=== PATIENT | female | born 1970 | race Caucasian/White ===

== ENCOUNTER 2017-01-14 14:23 | Emergency (ER) | payer MEDICAID ==
[~2017-01-14] VITALS: Ht 157.5 cm; Wt 88.5 kg
[2017-01-14 15:01] VITALS: BP 197/101
--- NOTE | 2017-01-14 15:33 | NUR ---
Patient to bed 08.
--- NOTE | 2017-01-14 15:45 | NUR ---
PT STATES LEFT KNEE PAIN X 1 MONTH---WORSE TODAY WHEN AWOKE, DENIES INJURY . DENIES N/V/D; SKIN IS PINK/WARM/DRY; AAOX4 WITH EVEN AND STEADY GAIT; LUNGS CLEAR BL; HR EVEN AND REGULAR; PT DENIES ANY FEVER, CP, SOB, OR COUGH AT THIS TIME; PATIENT STATES PAIN OF 10/10 AT THIS TIME; VSS; PATIENT POSITIONED FOR COMFORT; HOB ELEVATED; BEDRAILS UP X2; BED DOWN. ER MD MADE AWARE OF PT STATUS.
--- NOTE | 2017-01-14 15:51 | NUR ---
Dr. Cox evaluating patient at bedside.
[2017-01-14] MEDS ORDERED: KETOROLAC 30 MG/ML VIAL IM ONE (15:55)
[2017-01-14 16:35] VITALS: BP 175/99
== END 2017-01-14 16:35 | disposition home or self-care (01) ==
LOC: MED 14:23
DX: M17.12 Unilateral primary osteoarthritis, left knee (principal)
CPT/HCPCS: 96372; 99283; J1885

== ENCOUNTER 2020-08-20 11:05 | Inpatient (IN) | payer MEDICAID, SELFPAY ==
[~2020-08-20] VITALS: Ht 152.4 cm; Wt 95.7 kg
[2020-08-20 11:13] VITALS: BP 135/54
[2020-08-20] MEDS ORDERED: ROCURONIUM 50 MG/5 ML VIAL IV ONE (12:00)
[2020-08-20] MEDS ORDERED: ETOMIDATE 20 MG/10 ML VIAL IVP ONE (12:00)
[2020-08-20] MEDS ORDERED: AZITHROMYCIN 500 MG INJ VIAL IV ONE (12:32)
[2020-08-20] MEDS ORDERED: DEXAMETHASONE 10 MG/ML VIAL ONE (12:32)
[2020-08-20] MEDS ORDERED: cefTRIAXone 1,000 MG VIAL ONE (12:32)
[2020-08-20 15:46] VITALS: BP 133/79
[2020-08-20] MEDS ORDERED: DOCUSATE SODIUM 100 MG GELCAP PO PRN (17:10)
[2020-08-20] MEDS ORDERED: ZOLPIDEM 5 MG TAB PO PRN (17:10)
[2020-08-20] MEDS ORDERED: ONDANSETRON 4 MG/2 ML VIAL IM/IVP PRN (17:10)
[2020-08-20] MEDS ORDERED: POTASSIUM CHLORIDE 10 MEQ TABER PO PRN (17:10)
[2020-08-20] MEDS ORDERED: guaiFENesin DM 200/20 MG-10 ML 10 ML UDC PO PRN (17:10)
[2020-08-20] MEDS ORDERED: HYDROcodone/APAP 7.5/325 MG 1 TAB PO PRN (17:10)
[2020-08-20] MEDS ORDERED: ALBUTEROL HFA MDI 90 MCG/ACTUATION 8 GM INH PRN (17:15)
--- NOTE | 2020-08-20 18:07 | NUR ---
50 years old female with sob cough x1 week, hypoxic 88% room air, placed on BIPAP 10/ with 60% FIO2 will continue to monitor awaiting for admit tele bed.
[2020-08-20 19:07] LABS: HEMATOCRIT 39.6 % (36-48); HEMOGLOBIN 13.1 g/dL (12.0-16.0); MEAN CORPUSCULAR VOLUME 91.1 fL (80-94); RED BLOOD CELL COUNT(AUTO) 4.35 MIL/uL (4.20-5.40); WHITE BLOOD COUNT (AUTO) 8.8 K/uL (4.8-10.8)
[2020-08-20 19:08] LABS: LYMPHOCYTES % (AUTO) 15.6 % (20.5-51.1); MEAN CORPUSCULAR HEMOGLOBIN 30 pg (27-31); MEAN CORPUSCULAR HGB CONC 33 g/dL (33-37); MONOCYTES % (AUTO) 3.6 % (1.7-9.3); NEUTROPHILS % (AUTO) 80.5 % (42.2-75.2); PLATELET COUNT (AUTO) 183 K/uL (140-450); RED CELL DISTRIBUTION WIDTH 14.3 % (11.6-13.7)
[2020-08-20 19:09] LABS: BASOPHILS % (AUTO) 0.2 % (0.0-2.0); EOSINOPHILS % (AUTO) 0.2 % (0.0-4.0); LYMPHOCYTES # (AUTO) 1.4 K/uL (2.5-16.5); MONOCYTES # (AUTO) 0.3 K/uL (0.8-1.0); NEUTROPHILS # (AUTO) 7.1 K/uL (1.8-7.7)
--- NOTE | 2020-08-20 19:30 | NUR ---
RECEIVED REPORT FROM AVIS MCBRIDE FOR CONTINUITY OF CARE.
[2020-08-20 19:52] LABS: PROTHROMBIN TIME 9.3 secs (10.8-13.4)
[2020-08-20 19:55] VITALS: BP 122/64
--- NOTE | 2020-08-20 20:00 | NUR ---
PT LAYING IN BED ON BIPAP O2 SAT BETWEEN 87%-92% LUNG SOUNDS WHEEZES BILAT A&P THROUGHOUT. INTERMITENTLY. DENIES HAVING ANY PAIN OR DISCOMFORT AT THIS TIME. SHE IS AA&O4, HEBREW SPEAKING. ON CONTINUES BEDSIDE MONITORING (CARDIAC MONITORING, PULSE OXIMETRY AND BP MONITORING). BED WAS LOCKED AND PLACED IN LOWEST POSITION.
[2020-08-20 20:02] LABS: CHOL/HDL RATIO 2.4 (1-4.5); FREE T4 (FREE THYROXINE) 1.02 ng/dL (0.76-1.46); MAGNESIUM 0.9 mg/dL (1.8-2.4); PHOSPHORUS 1.9 mg/dL (2.5-4.9); THYROID STIMULATING HORMONE 1.13 uIU/mL (0.34-3.74)
--- NOTE | 2020-08-20 20:31 | NUR ---
DR. YIP AT BEDSIDE EVALUATING PT.
[2020-08-20 21:01] LABS: ANION GAP 15.6 (8-16); CARBON DIOXIDE 23.1 mmol/L (21-32); POTASSIUM 3.7 mmol/L (3.5-5.1); TOTAL BILIRUBIN 0.3 mg/dL (0.0-1.0)
[2020-08-20 21:02] LABS: ALBUMIN 2.7 g/dL (3.4-5.0)
[2020-08-20] MEDS: NACL 0.9% 1,000 ML IV SCH (21:43)
--- NOTE | 2020-08-20 22:35 | NUR ---
PT LAYING IN BED NO C/O PAIN OR DISCOMFORT AT THIS TIME. REMAINS ON BIPAP O2 SAT 89%. SETTINGS REMAIN AT THIS TIME. NO C/O N, V, D. REMAINS ON BEDSIDE MONITORING. BED LOCKED AND IN LOWEST POSITION.
[2020-08-21] VITALS (8 sets, daily range): BP systolic 122–158; BP diastolic 64–84
--- NOTE | 2020-08-21 00:18 | NUR ---
PT LAYING IN BED NO C/O PAIN OR DISCOMFORT AT THIS TIME. REMAINS ON BIPAP O2 SAT 89%. SETTINGS REMAIN AT THIS TIME. NO C/O N, V, D. REMAINS ON BEDSIDE MONITORING. BED LOCKED AND IN LOWEST POSITION. SHE WAS REPOSITION AND ADJUSTED HOB TO A COMFORTABLE POSITION.
--- NOTE | 2020-08-21 01:19 | NUR ---
OFFERED PT TO USE THE BATHROOM VIA BEDSIDE BEDPAN STATES, "I AM OKAY I DO NOT NEED TO GO". WILL CONTINUE TO MONITOR AND EDUCATED PT IF NEED TO GO TO CALL NURSE. VERBALIZED UNDERSTANDING.
--- NOTE | 2020-08-21 01:45 | NUR ---
AIXA SWAB COLLECTED AND SENT TO LAB AT THIS TIME.
--- NOTE | 2020-08-21 02:35 | NUR ---
PT LAYING IN BED NO C/O PAIN OR DISCOMFORT AT THIS TIME. REMAINS ON BIPAP O2 SAT 94%. SETTINGS REMAIN AT THIS TIME. NO C/O N, V, D. REMAINS ON BEDSIDE MONITORING. BED LOCKED AND IN LOWEST POSITION. SHE WAS REPOSITION AND ADJUSTED HOB TO A COMFORTABLE POSITION.
--- NOTE | 2020-08-21 03:00 | NUR ---
RECEIVED PATIENT FROM ER FOR CONTINUITY OF CARE. AAOX4. RESPIRATIONS EVEN, SLIGHTLY LABORED UPON EXERTION. CONTINUES ON BIPAP. SKIN ASSESSMENT COMPLETED. SKIN INTACT. IV SITE TO RIGHT AC 20G PATENT/INTACT, INFUSING FLUIDS WELL. NO C/O PAIN. NO S/S ACUTE DISTRESS. ABDOMEN SOFT, NONTENDER, NONDISTENDED. PATIENT IS CONTINENT OF B/B. PATIENT ORIENTED TO STAFF/CALL LIGHT/ROOM. PLAN OF CARE DISCUSSED WITH PATIENT. CALL LIGHT WITHIN REACH, SAFETY PRECAUTIONS IN PLACE. ISOLATION PRECAUTIONS OBSERVED BY ALL STAFF.
--- NOTE | 2020-08-21 03:00 | NUR ---
Patient will be admitted to care of DR. YIP. Admited to TELEMETRY. Will go to room 100A. Belongings list completed. Report GIVEN TO ABILIO MCBRIDE. ALL COVID PRECAUTIONS IN PLACE. PT TAKEN WITH RT AND EMT.
--- NOTE | 2020-08-21 05:12 | NUR ---
PATIENT RESTING COMFORTABLY IN BED. CONTINUES ON BIPAP. NO S/S ACUTE DISTRESS. CALL LIGHT WITHIN REACH. SAFETY PRECAUTIONS IN PLACE. ISOLATION PRECAUTIONS OBSERVED BY ALL STAFF.
[2020-08-21 06:58] LABS: BASOPHILS % (AUTO) 0.1 % (0.0-2.0); HEMATOCRIT 36.7 % (36-48); HEMOGLOBIN 12.2 g/dL (12.0-16.0); LYMPHOCYTES % (AUTO) 12.6 % (20.5-51.1); MEAN CORPUSCULAR HEMOGLOBIN 30 pg (27-31); MEAN CORPUSCULAR HGB CONC 33 g/dL (33-37); MEAN CORPUSCULAR VOLUME 90.5 fL (80-94); MONOCYTES # (AUTO) 0.6 K/uL (0.8-1.0); MONOCYTES % (AUTO) 7.8 % (1.7-9.3); NEUTROPHILS # (AUTO) 6.5 K/uL (1.8-7.7); NEUTROPHILS % (AUTO) 79.5 % (42.2-75.2); PLATELET COUNT (AUTO) 181 K/uL (140-450); RED BLOOD CELL COUNT(AUTO) 4.05 MIL/uL (4.20-5.40); RED CELL DISTRIBUTION WIDTH 14.2 % (11.6-13.7); WHITE BLOOD COUNT (AUTO) 8.2 K/uL (4.8-10.8)
--- NOTE | 2020-08-21 07:28 | NUR ---
RECEIVED PATIENT FROM NIGHT NURSE. PATIENT IN BED AWAKE AND ALERT. ABLE TO FOLLOW COMMANDS. RESP EVEN AND UNLABORED ON BIPAP. NO ACUTE S/S DISTRESS AT THIS TIME. DROPLET PRECAUTION OBSERVED. RAC 20G NS 20 INFUSING. HOB ELEVATED. SAFETY MEASURES IN PLACE. CALL LIGHT WITHIN REACH. WILL CONTINUE TO MONITOR.
--- NOTE | 2020-08-21 07:28 | NUR ---
ENDORSED TO AM SHIFT FOR CONTINUITY OF CARE.
[2020-08-21 07:43] LABS: ALBUMIN 2.4 g/dL (3.4-5.0); CARBON DIOXIDE 23.5 mmol/L (21-32); CREATININE 0.9 mg/dL (0.6-1.3); POTASSIUM 4.5 mmol/L (3.5-5.1); TOTAL BILIRUBIN 0.2 mg/dL (0.0-1.0)
[2020-08-21] MEDS: ENOXAPARIN 100 MG/ML SYR SUBQ SCH ×2 (08:31→20:02)
[2020-08-21] MEDS: AZITHROMYCIN 250 MG TAB PO SCH (08:38)
[2020-08-21] MEDS: PANTOPRAZOLE 40 MG TABEC PO SCH (08:39)
[2020-08-21] MEDS: ASCORBIC ACID 500 MG TAB PO SCH (08:39)
[2020-08-21] MEDS: ZINC SULF 220 MG CAP PO SCH (08:39)
--- NOTE | 2020-08-21 08:56 | NUR ---
PATIENT SITTING UP IN BED AWAKE AND ALERT. RESP EVEN AND UNLABORED ON BIPAP. NO ACUTE S/S DISTRESS. PATIENT DOES NOT HAVE A TELE BOX AT THIS TIME. APPLIED PSYCHOLOGY TEACHER MADE AWARE. PT DENIED OF PAIN. LUNGS CLEAR. RAC 20G INTACT AND PATENT INFUSING NS 60ML/HR. SKIN WARM TO TOUCH AND INTACT. PLAN OF CARE DISCUSSED. PATIENT VERBALIZED UNDERSTANDING. CALL LIGHT WITHIN REACH. WILL CONTINUE TO MONITOR.
[2020-08-21] MEDS: COMMUNICATION ORDER MC SCH (09:00)
--- NOTE | 2020-08-21 09:35 | NUR ---
PATIENT HAS BEEN SCREENED AND CATEGORIZED MODERATE NUTRITION RISK. PATIENT WILL BE SEEN WITHIN 3-5 DAYS OF ADMISSION. 08/23/20 08/25/[address]
[2020-08-21] MEDS: NACL 0.9% 1,000 ML IV SCH (09:50)
[2020-08-21] MEDS: MAGNESIUM OXIDE 400 MG TAB PO SCH (09:59)
--- NOTE | 2020-08-21 10:53 | NUR ---
PATIENT IN BED AWAKE AND ALERT. RESP EVEN AND UNLABORED ON BIPAP, O2SAT 92%. DENIED OF PAIN AT THIS TIME. PERSONAL CARE RENDERED. PATIENT TOLERATED WELL. NO ACUTE S/S DISTRESS. PATIENT ABLE TO MAKE NEEDS KNOWN AND FOLLOW COMMANDS. CALL LIGHT WITHIN REACH. WILL CONTINUE TO MONITOR.
[2020-08-21] MEDS ORDERED: remdesivir CLINICAL MONITORING 1 EA MISC MC PRN (10:55)
--- NOTE | 2020-08-21 12:25 | NUR ---
PATIENT IN BED RESTING, CHEST NOTED RISING, EYES CLOSED. RESP EVEN AND UNLABORED ON BIPAP, O2SAT 92%. NO ACUTE S/S DISTRESS. CALL LIGHT WITHIN REACH. WILL CONTINUE TO MONITOR.
[2020-08-21] MEDS: SODIUM PHOS / POTASSIUM PHOS 1 PKT PDR PO SCH ×2 (13:42→20:01)
--- NOTE | 2020-08-21 14:15 | NUR ---
PATIENT IN BED AWAKE AND ALERT WATCHING TV. ASSISTED PATIENT TO EAT HER LUNCH, O2SAT DROPPED TO 80% RAPIDLY WITHOUT BIPAP. BIPAP IMMEDIATELY REAPPLIED, O2SAT MAINTAINED 93%. PATIENT NODDED UNDERSTANDING OF IMPORTANCE OF OXYGENATION AT THIS TIME. NO ACUTE S/S DISTRESS. PATIENT ABLE TO FOLLOW COMMANDS. CALL LIGHT WITHIN REACH. WILL CONTINUE TO MONITOR.
[2020-08-21] MEDS ORDERED: REMDESIVIR (EUA) 200 MG in NACL 0.9% 100 ML IV SCH (15:30)
--- NOTE | 2020-08-21 16:35 | NUR ---
ASSISTED PATIENT WITH BEDPAN. PERSONAL CARE RENDERED. PATIENT TOLERATED WELL. RESP EVEN AND UNLABORED ON BIPAP. NO NOTED ACUTE S/S DISTRESS. ORAL CARE PROVIDED. FLUIDS GIVEN. DENIED OF PAIN AT THIS TIME. CALL LIGHT WITHIN REACH. WILL CONTINUE TO MONITOR.
--- NOTE | 2020-08-21 18:50 | NUR ---
PATIENT IN BED RESTING, EYES CLOSED, CHEST NOTED RISING. RESP EVEN AND UNLABORED ON BIPAP. NO ACUTE S/S DISTRESS. CALL LIGHT WITHIN REACH. WILL CONTINUE TO MONITOR.
--- NOTE | 2020-08-21 19:25 | NUR ---
ENDORSED TO NIGHT NURSE. PATIENT IN STABLE CONDITION.
--- NOTE | 2020-08-21 19:26 | NUR ---
RECEIVED REPORT FROM FERNANDO MERCEDES RN. PT AOX4 ON BIPAP. NO S/S RESPIRATORY DISTRESS. NO C/O PAIN AT THIS TIME. IV SITE RAC 20G, PATENT INTACT, INFUSING IVF ORDERED. SAFETY MEASURES IN PLACE. CALL LIGHT WITHIN REACH. WILL CONTINUE TO MONITOR.
--- NOTE | 2020-08-21 20:05 | NUR ---
ADMINISTERED SCHEDULED MEDICATIONS, TOLERATED WELL. WILL CONTINUE TO MONITOR
--- NOTE | 2020-08-21 22:30 | NUR ---
ASSISTED PT TO BEDPAN, VOIDED, CLEANED AND CHANGED. TOLERATED WELL. WILL CONTINUE TO MONITOR
[2020-08-22] VITALS: BP 127/66
--- NOTE | 2020-08-22 01:20 | NUR ---
PT ASLEEP IN BED. RESPIRATIONS EVEN AND UNLABORED. WILL CONTINUE TO MONITOR
[2020-08-22] MEDS: NACL 0.9% 1,000 ML IV SCH ×2 (02:30→16:58)
[2020-08-22 04:00] VITALS: BP 143/76
--- NOTE | 2020-08-22 04:30 | NUR ---
CLEANED CHANGED REPOSITIONED PT, TOLERATED WELL. NO DISTRESS NOTED. WILL CONTINUE TO MONITOR
[2020-08-22] MEDS: SODIUM PHOS / POTASSIUM PHOS 1 PKT PDR PO SCH ×3 (04:37→20:53)
[2020-08-22 07:06] LABS: T4 (THYROXINE) 8.2 ug/dL (4.5-12.0)
--- NOTE | 2020-08-22 07:10 | NUR ---
ENDORSED PT TO DAY RN FOR CONTINUITY OF CARE. PT IS IN STABLE CONDITION
--- NOTE | 2020-08-22 07:11 | NUR ---
RECEIVED PATIENT FROM NIGHT NURSE. PATIENT IN BED AWAKE AND ALERT. RESP EVEN AND UNLABORED ON BIPAP. NO ACUTE S/S DISTRESS AT THIS TIME. RAC 20G INFUSING NS 60ML/HR. PLAN OF CARE DISCUSSED WITH PATIENT. PATIENT VERBALIZED UNDERSTANDING. SAFETY MEASURES IN PLACE. CALL LIGHT WITHIN REACH. WILL CONTINUE TO MONITOR.
[2020-08-22 07:58] LABS: BASOPHILS % (AUTO) 0.1 % (0.0-2.0); EOSINOPHILS % (AUTO) 0.1 % (0.0-4.0); HEMATOCRIT 38.3 % (36-48); HEMOGLOBIN 12.4 g/dL (12.0-16.0); LYMPHOCYTES # (AUTO) 1.3 K/uL (2.5-16.5); LYMPHOCYTES % (AUTO) 11.5 % (20.5-51.1); MEAN CORPUSCULAR HEMOGLOBIN 30 pg (27-31); MEAN CORPUSCULAR HGB CONC 32 g/dL (33-37); MEAN CORPUSCULAR VOLUME 91.8 fL (80-94); MONOCYTES # (AUTO) 0.5 K/uL (0.8-1.0); MONOCYTES % (AUTO) 4.8 % (1.7-9.3); NEUTROPHILS # (AUTO) 9.5 K/uL (1.8-7.7); NEUTROPHILS % (AUTO) 83.5 % (42.2-75.2); PLATELET COUNT (AUTO) 228 K/uL (140-450); RED BLOOD CELL COUNT(AUTO) 4.17 MIL/uL (4.20-5.40); WHITE BLOOD COUNT (AUTO) 11.4 K/uL (4.8-10.8)
[2020-08-22 08:00] VITALS: BP 132/71
[2020-08-22] MEDS: ENOXAPARIN 100 MG/ML SYR SUBQ SCH ×2 (08:15→20:45)
[2020-08-22] MEDS: PANTOPRAZOLE 40 MG TABEC PO SCH (08:16)
[2020-08-22] MEDS: ZINC SULF 220 MG CAP PO SCH (08:16)
[2020-08-22] MEDS: MAGNESIUM OXIDE 400 MG TAB PO SCH (08:16)
[2020-08-22] MEDS: AZITHROMYCIN 250 MG TAB PO SCH (08:16)
[2020-08-22] MEDS: ASCORBIC ACID 500 MG TAB PO SCH (08:16)
[2020-08-22] MEDS: COMMUNICATION ORDER MC SCH (08:17)
--- NOTE | 2020-08-22 08:35 | NUR ---
PATIENT IN BED AWAKE AND ALERT. MORNING ROUTINE MEDICATIONS GIVEN. PATIENT TOLERATED WELL. RESP EVEN AND UNLABORED ON BIPAP. DENIED OF PAIN AT THIS TIME. PATIENT ABLE TO MAKE NEEDS KNOWN AND FOLLOW COMMANDS. RAC 20G INTACT INFUSING NS 60ML/HR. ASSISTED PATIENT WITH MORNING CARE. PATIENT TOLERATED WELL. SAFETY MEASURES IN PLACE. CALL LIGHT WITHIN REACH. WILL CONTINUE TO MONITOR.
[2020-08-22 08:40] LABS: ALBUMIN 2.4 g/dL (3.4-5.0); ANION GAP 14.9 (8-16); CREATININE 0.8 mg/dL (0.6-1.3); POTASSIUM 4.9 mmol/L (3.5-5.1); TOTAL BILIRUBIN 0.2 mg/dL (0.0-1.0)
[2020-08-22 11:11] LABS: MAGNESIUM 2.2 mg/dL (1.8-2.4); PHOSPHORUS 2.8 mg/dL (2.5-4.9)
--- NOTE | 2020-08-22 11:49 | NUR ---
PATIENT IN BED, EYES CLOSED, CHEST NOTED RISING. NO ACUTE S/S DISTRESS AT THIS TIME. CONTINUE ON BIPAP. CALL LIGHT WITHIN REACH. WILL CONTINUE TO MONITOR.
[2020-08-22 12:00] VITALS: BP 151/70
--- NOTE | 2020-08-22 13:38 | NUR ---
ASSISTED PATIENT TO EAT LUNCH. PATIENT ATE 20% OF LUNCH AND REFUSED THE REST. PATIENT TOLERATED WELL. O2SAT DROPPED TO 87% DURING EATING BUT BIPAP WAS REAPPLIED. O2SAT MAINTAINED 93% AT THIS TIME. FLUIDS GIVEN. ORAL CARE PROVIDED. DENIED OF PAIN AT THIS TIME. CALL LIGHT WITHIN REACH. WILL CONTINUE TO MONITOR.
--- NOTE | 2020-08-22 15:18 | NUR ---
PATIENT IN BED COMFORTABLE, EYES CLOSED, CHEST NOTED RISING. RESP EVEN AND UNLABORED ON BIPAP. NO ACUTE S/S DISTRESS AT THIS TIME. CALL LIGHT WITHIN REACH. WILL CONTINUE TO MONITOR.
[2020-08-22 16:00] VITALS: BP 132/77
[2020-08-22] MEDS: REMDESIVIR (EUA) 100 MG in NACL 0.9% 100 ML IV SCH (16:48)
--- NOTE | 2020-08-22 17:35 | NUR ---
PERSONAL CARE RENDERED. PATIENT TOLERATED WELL. NO ACUTE S/S DISTRESS ON BIPAP, O2SAT 93%. PATIENT ABLE TO FOLLOW DIRECTION AND MAKE NEEDS KNOWN. CALL LIGHT WITHIN REACH WILL CONTINUE TO MONITOR.
--- NOTE | 2020-08-22 19:05 | NUR ---
ENDORSED PATIENT TO NIGHT NURSE. PATIENT IN STABLE CONDITION.
--- NOTE | 2020-08-22 19:10 | NUR ---
RECEIVED REPORT FROM MAGO KING. PT AOX4 ON BIPAP. NO S/S RESPIRATORY DISTRESS. NO C/O PAIN AT THIS TIME. IV SITE RAC 20G PATENT INTACT INFUSING NS AT 60 ML/HR. SAFETY MEASURES IN PLACE. CALL LIGHT WITHIN REACH. WILL CONTINUE TO MONITOR
[2020-08-22 20:00] VITALS: BP 140/74
--- NOTE | 2020-08-22 20:55 | NUR ---
ADMINISTERED SCHEDULED MEDICATIONS. TOLERATED WELL. WILL CONTINUE TO MONITOR
[2020-08-23] VITALS (7 sets, daily range): BP systolic 138–180; BP diastolic 74–106
--- NOTE | 2020-08-23 01:30 | NUR ---
ASSISTED PT TO BEDPAN. HAD MODERATE LOOSE BROWN BOWEL MOVEMENT. CLEANED AND CHANGED PT. NO DISTRESS NOTED. WILL CONTINUE TO MONITOR
--- NOTE | 2020-08-23 03:00 | NUR ---
PT C/O SOB, O2 SAT 88% DESAT TO 83%. CALLED RT. RAISED HOB UPRIGHT. INSTRUCTED PT TO TAKE SLOW DEEP BREATHS. VS: 159/86 HR 101 TEMP 98.7 RR 30'S TO 40'S. CALLED RT SECOND TIME. CALLED RT THIRD TIME. RT AT BEDSIDE. PER RT, PATIENT WAS GIVEN PRN INH. O2 SAT RAISED TO 98%. PT STATED SOB IMPROVED. PT IS IN STABLE CONDITION. PER RT, ORDERED PRN DUONEB. WILL CONTINUE TO MONITOR PATIENT
--- NOTE | 2020-08-23 04:55 | NUR ---
PT ASLEEP IN BED. NO DISTRESS NOTED. WILL CONTINUE TO MONITOR
[2020-08-23] MEDS: SODIUM PHOS / POTASSIUM PHOS 1 PKT PDR PO SCH ×3 (05:00→22:32)
--- NOTE | 2020-08-23 06:50 | NUR ---
PT AWAKE IN BED. O2 SAT 95%. NO DISTRESS NOTED. WILL ENDORSE TO DAY RN FOR CONTINUITY OF CARE. PT IS IN STABLE CONDITION
--- NOTE | 2020-08-23 07:35 | NUR ---
RT CALLED TO CHECK THE PATIENT. HYPERVENTILATED, RR 48-50. RT STATED WILL CHECK PATIENT WHEN AVAILABLE.
--- NOTE | 2020-08-23 07:47 | NUR ---
INFORMED DR. YIP THAT PATIENT IS VERY ANXIOUS AND O2 DESATURATE TO 80S WITH BIPAP. PER DR. YIP, ATIVAN NOT ABLE TO BE GIVEN DUE TO IT WILL DEPRESS PATIENT'S RESPIRATORY EFFORT. NEED TO CALM PATIENT DOWN, TAKE DEEP BREATH, OR ELSE NEED TO INTUBATE IF O2 DESATURATE. WILL FOLLOW UP WITH RT.
--- NOTE | 2020-08-23 07:50 | NUR ---
RT CAME AND CALM THE PATIENT DOWN, O2 SAT INCREASED TO 93% WITH 100% BIPAP. ENCOURAGED PATIENT TO RELAX AND TAKE DEEP BREATH. INFORMED PATIENT WILL CONTINUE TO CHECK ON HER. PATIENT NOD HER HEAD. RESPIRATORY RATE DECREASED TO 42. WILL CONTINUE TO CLOSELY TO MONITOR.
--- NOTE | 2020-08-23 08:28 | NUR ---
CHECKED PATIENT, O2 SAT 95% WITH BIPAP 100% O2 DELIVERY. ENCOURAGED PATIENT TO KEEP RELAX AND TAKE DEEP BREATH. PATIENT NOD HER HEAD. WILL CONTINUE TO MONITOR PATIENT AND KEEP HER CALM.
[2020-08-23 08:54] LABS: BASOPHILS # (AUTO) 0.1 K/uL (0.00-0.22); BASOPHILS % (AUTO) 0.4 % (0.0-2.0); EOSINOPHILS % (AUTO) 0.2 % (0.0-4.0); HEMATOCRIT 40.1 % (36-48); LYMPHOCYTES # (AUTO) 1.4 K/uL (2.5-16.5); LYMPHOCYTES % (AUTO) 9.4 % (20.5-51.1); MEAN CORPUSCULAR HEMOGLOBIN 30 pg (27-31); MEAN CORPUSCULAR HGB CONC 32 g/dL (33-37); MEAN CORPUSCULAR VOLUME 91.4 fL (80-94); MONOCYTES # (AUTO) 0.6 K/uL (0.8-1.0); MONOCYTES % (AUTO) 3.9 % (1.7-9.3); NEUTROPHILS # (AUTO) 13.1 K/uL (1.8-7.7); NEUTROPHILS % (AUTO) 86.1 % (42.2-75.2); PLATELET COUNT (AUTO) 295 K/uL (140-450); RED BLOOD CELL COUNT(AUTO) 4.38 MIL/uL (4.20-5.40); RED CELL DISTRIBUTION WIDTH 14.4 % (11.6-13.7); WHITE BLOOD COUNT (AUTO) 15.3 K/uL (4.8-10.8)
[2020-08-23 09:03] LABS: ALBUMIN 2.5 g/dL (3.4-5.0); ANION GAP 10.2 (8-16); CARBON DIOXIDE 26.3 mmol/L (21-32); CREATININE 0.8 mg/dL (0.6-1.3); POTASSIUM 4.5 mmol/L (3.5-5.1); TOTAL BILIRUBIN 0.3 mg/dL (0.0-1.0)
[2020-08-23] MEDS: PANTOPRAZOLE 40 MG TABEC PO SCH (09:50)
[2020-08-23] MEDS: ASCORBIC ACID 500 MG TAB PO SCH (09:51)
[2020-08-23] MEDS: AZITHROMYCIN 250 MG TAB PO SCH (09:51)
[2020-08-23] MEDS: ZINC SULF 220 MG CAP PO SCH (09:51)
[2020-08-23] MEDS: ENOXAPARIN 100 MG/ML SYR SUBQ SCH ×2 (09:52→22:33)
[2020-08-23] MEDS: NACL 0.9% 1,000 ML IV SCH (09:52)
--- NOTE | 2020-08-23 10:45 | NUR ---
ASSISTED ROUTE SALES DRIVER TO CHANGE THE PATIENT. PATIENT'S O2 SAT DESATURATE TO 84% AFTER TURN FOR DIAPER CHANGE. REPOSE PATIENT TO HIGH CELESTIN. CALM PATIENT DOWN. PATIENT TRIED TO TAKE DEEP BREATH AND RELAX. O2 SAT WENT BACK TO 91% WITH BIPAP. INFORMED PATIENT TO PRESS CALL LIGHT IF NEED ANYTHING. SAFETY MEASURES IN PLACE, WILL CONTINUE TO MONITOR.
--- NOTE | 2020-08-23 11:57 | NUR ---
DISCHARGE PLANNING: THIS IS A 50 Y/O FEMALE PATIENT FROM HOME, WHO CAME IN DUE TO WORSENING SOB. DENIES ANY PAST MEDICAL HISTORY. INITIAL DIAGNOSIS OF COVID, PNEUMONIA, HYPOXIA. ON BIPAP, FIO2 70%, O2 SAT 95%. CXR SHOWED MILD IMPROVEMENT IN BILATERAL INFILTRATES, PERSISTENT CARDIOMEGALY. PER PULMO - CONTINUE BIPAP, DECADRON, ANTICOAGULATION, RECOMMENDS CTA ONCE PATIENT IS MORE STABLE, CONVALESCENT PLASMA IF AVAILABLE, WEAN OFF BIPAP TOLERATED.
--- NOTE | 2020-08-23 12:54 | NUR ---
CHECKED THE PATIENT. FEED PATIENT SOME WATER. O2 SAT WENT BACK TO 94%. HR 96. PATIENT REMAIN CALM AND ENCOURAGED PATIENT TO KEEP TAKING DEEP BREATH. PATIENT NODDED HER HEAD. WILL CONTINUE TO CLOSELY TO MONITOR.
--- NOTE | 2020-08-23 13:48 | NUR ---
CHECKED THE PATIENT. O2 SAT 93% WITH BIPAP, HR 102, RR 42. REMAIN CALM. ENCOURAGED PATIENT TO KEEP RELAX AND DEEP BREATH, NOD HEAD. WILL CONTINUE TO MONITOR.
--- NOTE | 2020-08-23 15:42 | NUR ---
CHECKED PATIENT. SITTING IN BED. O2 SAT 91%, RR42, HR 104. ENCOURAGED PATIENT TO TAKE DEEP BREATH. WILL CONTINUE TO MONITOR.
[2020-08-23] MEDS: REMDESIVIR (EUA) 100 MG in NACL 0.9% 100 ML IV SCH (17:11)
--- NOTE | 2020-08-23 17:12 | NUR ---
REMDESIVIR GIVEN VIA IVPB. EDUCATION PROVIDED. PATIENT'2 02 SAT 92%, HR 108, RR40. WILL CONTINUE TO MONITOR.
--- NOTE | 2020-08-23 17:30 | NUR ---
DISCHARGER PROTOCOL FOLLOWED. SENT PATIENT TO THE FRONT LOBBY TO HER FAMILY. PATIENT IN STABLE CONDITION. Addendum: 08/23/20 at 1733 by Jonny Sarah RN WRONG PATIENT, WRONG DOCUMENTATION.
--- NOTE | 2020-08-23 19:22 | NUR ---
ENDORSED PATIENT TO FRUIT PACKER RN FOR CONTINUITY OF CARE. PATIENT IN STABLE CONDITION, O2 SAT 92% WITH BIPAP.
--- NOTE | 2020-08-23 19:54 | NUR ---
RECEIVED ENDORSEMENT FROM AM SHIFT RN, PT ON BIPAP, NO SOB, NO DISTRESS, IVF INFUSING, SAFETY MEASURES IN PLACE, PLAN OF CARE DISCUSSED, CALL LIGHT WITHIN REACH.
--- NOTE | 2020-08-23 22:32 | NUR ---
PT AWAKE, SITTING ON BED, DUE MEDS GIVEN ORDERED, TOLERATED WELL, CALL LIGHT WITHIN REACH.
[2020-08-24] VITALS: BP 152/90
--- NOTE | 2020-08-24 01:06 | NUR ---
ASLEEP, NO SOB, CALL LIGHT WITHIN REACH.
--- NOTE | 2020-08-24 03:00 | NUR ---
CHECKED PT, FIXED HER BIPAP, KEPT COMFORTABLE, CALL LIGHT WITHIN REACH.
[2020-08-24 04:00] VITALS: BP 151/99
[2020-08-24] MEDS: NACL 0.9% 1,000 ML IV SCH ×2 (04:30→10:19)
[2020-08-24] MEDS: ACETAMINOPHEN 325 MG TAB PO PRN (04:36)
[2020-08-24] MEDS: SODIUM PHOS / POTASSIUM PHOS 1 PKT PDR PO SCH ×3 (05:29→20:50)
--- NOTE | 2020-08-24 05:38 | NUR ---
PT SITTING ON BED, DUE MEDS GIVEN ORDERED, TOLERATED WELL, O2 SAT 94%, ALL NEEDS ATTENDED, CALL LIGHT WITHIN REACH.
[2020-08-24 07:09] LABS: ALBUMIN 2.5 g/dL (3.4-5.0); ANION GAP 17.6 (8-16); CARBON DIOXIDE 22.1 mmol/L (21-32); CREATININE 0.7 mg/dL (0.6-1.3); POTASSIUM 3.7 mmol/L (3.5-5.1); TOTAL BILIRUBIN 0.3 mg/dL (0.0-1.0)
--- NOTE | 2020-08-24 07:20 | NUR ---
PT STABLE, ENDORSED TO AM SHIFT RN FOR CONTINUITY OF CARE.
[2020-08-24 08:00] VITALS: BP 159/77
[2020-08-24] MEDS: ASCORBIC ACID 500 MG TAB PO SCH (08:17)
[2020-08-24] MEDS: AZITHROMYCIN 250 MG TAB PO SCH (08:17)
[2020-08-24] MEDS: PANTOPRAZOLE 40 MG TABEC PO SCH (08:17)
[2020-08-24] MEDS: ZINC SULF 220 MG CAP PO SCH (08:17)
[2020-08-24] MEDS: ENOXAPARIN 100 MG/ML SYR SUBQ SCH ×2 (08:19→20:30)
--- NOTE | 2020-08-24 08:19 | NUR ---
SCHEDULED MORNING MEDICATIONS GIVEN, EDUCATION PROVIDED. PATIENT TOLERATED OK. ENCOURAGED PATIENT TO RELAX AND TAKE DEEP BREATHE. PATIENT NODDED HER HEAD. SAFETY MEASURES IN PLACE, WILL CONTINUE TO MONITOR.
[2020-08-24] MEDS: COMMUNICATION ORDER MC SCH (09:00)
--- NOTE | 2020-08-24 11:35 | NUR ---
IV ON THE RIGHT AC LEAKING. REMOVED IV CANNULA INTACT. INSERT NEW IV ON THE RIGHT HAND 22G WITH FIRST ATTEMPT. GOOD BLOOD RETURN AND EASILY FLUSH WITH NS. PATIENT TOLERATED WELL. FEED PATIENT WITH WATER AND APPLE JUICE. PATIENT'S O2 SAT 90%. SAFETY MEASURES IN PLACE. WILL CONTINUE TO MONITOR.
[2020-08-24 12:00] VITALS: BP 140/86
--- NOTE | 2020-08-24 13:30 | NUR ---
SCHEDULED MEDICATION GIVEN, EDUCATION PROVIDED, FEED PATIENT WITH WATER. PATIENT TOLERATED FIND. CALM PATIENT DOWN. O2 SAT 87% WITH BIPAP. ENCOURAGED PATIENT TO KEEP TAKING DEEP BREATH AND RELAX. PATIENT NOD HER HEAD. WILL CONTINUE TO MONITOR.
--- NOTE | 2020-08-24 14:45 | NUR ---
08/24/20 RD INITIAL ASSESSMENT COMPLETED PLEASE REFER TO NUTRITION ASSESSMENT UNDER CARE ACTIVITY FOR ESTIMATED NUTRITIONAL NEEDS. 1. RECOMMEND TPN/PPN FOR POOR PO INTAKE AND DIFFICULTY CONSUMING PO INTAKE 2. CONTINUE ENSURE TID TOLERATED 3. IF RESPIRATORY STATUS WORSENS CONSIDER TUBE FEEDING WITH JEVITY 1.2 @ 70 ML/HR WITH FLUSH OF 110 ML Q4H -THIS WILL PROVIDE 1680 ML OF VOLUME, 1355 ML OF WATER, 2016 KCAL, [address] OF [address]. [address] TO FOLLOW-UP 2-3 DAYS, HIGH RISK CONNIE CROWDER RD
[2020-08-24 16:00] VITALS: BP 138/87
--- NOTE | 2020-08-24 17:00 | NUR ---
FEED PATIENT WITH WATER. PATIENT DOES NOT TOLERATE QUITE WELL WHEN TOOK OF THE BIPAP FOR FEW SECONDS, PATIENT IS VERY ANXIOUS AND SOB. PUT BACK THE BIPAP. INSTRUCTED THE PATIENT TO TAKE DEEP BREATH. O2 SAT WENT BACK TO 86%. ENCOURAGED PATIENT TO RELAX. WILL CONTINUE TO MONITOR.
[2020-08-24] MEDS: REMDESIVIR (EUA) 100 MG in NACL 0.9% 100 ML IV SCH (17:58)
--- NOTE | 2020-08-24 19:15 | NUR ---
ENDORSED PATIENT TO CLINICAL EXERCISE SPECIALIST RN FOR CONTINUITY OF CARE. PATIENT'S O2 SAT 87% WITH BIPAP.
[2020-08-24 20:00] VITALS: BP 144/94
--- NOTE | 2020-08-24 20:30 | NUR ---
PT IN BED RR 48, 02 BOUNCING FORM 84-88%. PT ENCOURAGED TO LAY DOWN PRONE. PT SAID SHE WOULD BE DID NOT MOVE. PT ENCOURAGED TO LAY DOWN PRONE IN [place], PT SAID OK BUT DIDN'T WANT TO MOVE. PT WAS GIVEN DUE MEDS , EDUCATION REGARDING MEDICATIONS PROVIDED AT BEDSIDE.
--- NOTE | 2020-08-24 21:06 | NUR ---
PT IN BED WITH BIPAP ON, SHE IS [place] AT 45-56RR T 99.6 P 131 B/P 156/56. SPOKE WITH RT AND MD YIP, PER MD YIP OK TO INTUBATE. MD AT BEDSIDE AT THIS TIME.
[2020-08-24] MEDS ORDERED: LORazepam 2 MG/ML VIAL IVP SCH (21:15)
--- NOTE | 2020-08-24 22:00 | NUR ---
MD YIP ORDERED ATIVAN X1 IVP 1MG TO HELP PT WITH ANXIETY. ATIVAN GIVEN IVP. PT ALSO ASSISTED WITH PRONE POSITION. HOB ELEVATED PT 02 WENT UP TO 88%.
[2020-08-24] MEDS ORDERED: ALBUTEROL SULFATE/IPRATROPIU 3 ML SOL IH PRN (23:00)
--- NOTE | 2020-08-24 23:05 | NUR ---
PT DESATURATING IN 70s. RNs AND RTs ASSISTED PT INTO PRONE POSITION. SPO2 IMPROVED TO 86%. PT ON BiPAP SETTINGS 22/12, 20, 100%. WILL CONTINUE TOO MONITOR PT.
[2020-08-24] MEDS: ALBUTEROL SULFATE/IPRATROPIU 3 ML SOL IH PRN (23:15)
--- NOTE | 2020-08-24 23:30 | NUR ---
CHECKED ON PT. PT TOLERATING WELL. SPO2 94%. WILL CONTINUE TO MONITOR.
[2020-08-25] VITALS: BP 152/55
[2020-08-25] MEDS: ALBUTEROL SULFATE/IPRATROPIU 3 ML SOL IH SCH ×2 (01:00→20:35)
--- NOTE | 2020-08-25 01:30 | NUR ---
PT TURNED HERSELF AND PULLED OFF MASK AND IV , PT WAS FOUND TO HAVE 22%. PT MASK REAPPLIED AND SHE WAS PUT IN THE PRONE POSITION. PT 02 87% AND CLIMBING. PT REMINDED TO KEEP MASK ON. PT VERBALIZED UNDERSTANDING.
--- NOTE | 2020-08-25 02:30 | NUR ---
PT IN PRONE POSITION, 02 UP TO 95%. WILL CONTINUE TO MONITOR.
[2020-08-25] MEDS: ALBUTEROL SULFATE/IPRATROPIU 3 ML SOL IH PRN (03:29)
[2020-08-25 04:00] VITALS: BP 103/61
--- NOTE | 2020-08-25 04:00 | NUR ---
PT IN BED ASLEEP 02 UP TO 97-99% WITH BIPAP ON RR AND HR MUCH IMPROVED FORM THE BEGINNING OF THE SHIFT.
[2020-08-25] MEDS: SODIUM PHOS / POTASSIUM PHOS 1 PKT PDR PO SCH ×3 (05:00→21:34)
--- NOTE | 2020-08-25 05:53 | NUR ---
PT WAS TURNED, CHANGED AND REPOSITIONED IN BED. NEW IV ON RIGHT AC RUNNING 60 MLS/HR ORDERED. PT UNABLE TO TAKE ORDERED NEUTRA PHOS DUE TO BEING IN PRONE POSITION, PT HAVING DIFFICULTY SWALLOWING, PT RR AT 50, BUT 02 IS 98% ON ALL CURRENT VENT SETTINGS. FI02 IS AT 100%.
[2020-08-25 08:00] VITALS: BP 118/71
[2020-08-25] MEDS: PANTOPRAZOLE 40 MG TABEC PO SCH (08:25)
[2020-08-25] MEDS: ASCORBIC ACID 500 MG TAB PO SCH (08:25)
[2020-08-25] MEDS: AZITHROMYCIN 250 MG TAB PO SCH (08:27)
[2020-08-25] MEDS: ZINC SULF 220 MG CAP PO SCH (08:27)
[2020-08-25] MEDS: ENOXAPARIN 100 MG/ML SYR SUBQ SCH ×2 (08:28→21:37)
--- NOTE | 2020-08-25 08:40 | NUR ---
SCHEDULED MORNING MEDICATIONS GIVEN, CRUSHED AND FEED WITH WATER. PATIENT ON BIPAP 100% FIO2, O2 SAT 100%, HR 81, IN PRONE POSITION. NO PAIN NOTED. SAFETY MEASURES IN PLACE, WILL CONTINUE TO MONITOR.
[2020-08-25 09:08] LABS: ALBUMIN 2.1 g/dL (3.4-5.0); ANION GAP 13.5 (8-16); CARBON DIOXIDE 26.5 mmol/L (21-32); CREATININE 0.6 mg/dL (0.6-1.3); TOTAL BILIRUBIN 0.3 mg/dL (0.0-1.0)
--- NOTE | 2020-08-25 10:55 | NUR ---
CHECKED THE PATIENT. O2 SAT 100% WITH BIPAP IN [place]PINE POSITION. FEED PATIENT WITH 2 CUPS OF WATER. PATIENT TOLERATED WELL. NO ACUTE DISTRESS NOTED. ENCOURAGED PATIENT TO RELAX. VERBALIZED UNDERSTANDING. WILL CONTINUE TO MONITOR.
[2020-08-25 12:00] VITALS: BP 125/68
--- NOTE | 2020-08-25 13:03 | NUR ---
SCHEDULED MEDICATION GIVEN. PATIENT TOLERATED WELL. PATIENT IN PRONE POSITION. O2 SAT 100% WITH 100% BIPAP. FED PATIENT WATER. SAFETY MEASURES IN PLACE. WILL CONTINUE TO MONITOR.
--- NOTE | 2020-08-25 13:17 | NUR ---
SPOKE TO DR. GILMORE TO RECOMMEND TPN AND SHE WAS AGREEABLE TO RECOMMENDATIONS. NOTIFIED RN.
[2020-08-25] MEDS ORDERED: TPN PER PHARMACY MC PRN (13:20)
--- NOTE | 2020-08-25 14:20 | NUR ---
CHECKED THE PATIENT. O2 SAT 100% WITH BIPAP IN PRONE POSITION. HR 76. FED PATIENT WITH 2 CUPS OF WATER. PATIENT TOLERATED WELL. ENCOURAGED PATIENT TO RELAX AND TAKE DEEP BREATH. PATIENT VERBALIZED UNDERSTANDING. WILL CONTINUE TO MONITOR.
[2020-08-25] MEDS ORDERED: INSULIN LISPRO SLIDING SCALE 100 UNITS/ML VIAL SUBQ PRN (14:55)
[2020-08-25 16:00] VITALS: BP 116/65
[2020-08-25] MEDS: NACL 0.9% 1,000 ML IV SCH (16:52)
[2020-08-25] MEDS: REMDESIVIR (EUA) 100 MG in NACL 0.9% 100 ML IV SCH (16:53)
--- NOTE | 2020-08-25 16:55 | NUR ---
CHECKED PATIENT. O2 SAT 100% WITH BIPAP, IN PRONE POSITION. FED PATIENT WITH WATER, TOLERATED WELL, NO ACUTE DISTRESS NOTED. WILL CONTINUE TO MONITOR.
[2020-08-25] MEDS: BLOOD GLUCOSE MONITORING 1 DEV DEV MC SCH (18:21)
--- NOTE | 2020-08-25 18:21 | NUR ---
ACCUCHECK DONE 134, NO INSULIN COVERAGE NEEDED. RT DECREASED BIPAP FIO2 TO 80%, PATIENT TOLERATED WELL. WILL CONTINUE TO MONITOR.
--- NOTE | 2020-08-25 19:50 | NUR ---
ENDORSED PATIENT TO SENIOR TRAINING SPECIALIST RN FOR CONTINUITY OF CARE. PATIENT IN STABLE CONDITION. O2 SAT 100% WITH BIPAP FIO2 80%.
[2020-08-25] MEDS: AMINO ACIDS IV SCH ×4 (20:23)
[2020-08-25] MEDS: DEXTROSE IV SCH ×4 (20:23)
[2020-08-25] MEDS: MULTIVITAMIN IV SCH ×4 (20:23)
[2020-08-25] MEDS: [UNRECOGNIZED DRUG - OTHER] IV SCH ×4 (20:23)
[2020-08-26] MEDS: ALBUTEROL SULFATE/IPRATROPIU 3 ML SOL IH SCH ×4 (00:08→19:48)
[2020-08-26] MEDS: BLOOD GLUCOSE MONITORING 1 DEV DEV MC SCH ×4 (00:36→18:01)
[2020-08-26 04:31] VITALS: BP 116/65
[2020-08-26] MEDS: SODIUM PHOS / POTASSIUM PHOS 1 PKT PDR PO SCH ×3 (05:43→21:16)
[2020-08-26 06:50] LABS: BASOPHILS % (AUTO) 0.1 % (0.0-2.0); EOSINOPHILS % (AUTO) 0.2 % (0.0-4.0); HEMATOCRIT 34.9 % (36-48); HEMOGLOBIN 11.5 g/dL (12.0-16.0); LYMPHOCYTES # (AUTO) 0.5 K/uL (2.5-16.5); MEAN CORPUSCULAR HEMOGLOBIN 30 pg (27-31); MEAN CORPUSCULAR HGB CONC 33 g/dL (33-37); MEAN CORPUSCULAR VOLUME 89.8 fL (80-94); MONOCYTES # (AUTO) 0.3 K/uL (0.8-1.0); MONOCYTES % (AUTO) 1.8 % (1.7-9.3); NEUTROPHILS % (AUTO) 94.9 % (42.2-75.2); PLATELET COUNT (AUTO) 402 K/uL (140-450); RED BLOOD CELL COUNT(AUTO) 3.89 MIL/uL (4.20-5.40); RED CELL DISTRIBUTION WIDTH 13.6 % (11.6-13.7); WHITE BLOOD COUNT (AUTO) 17.9 K/uL (4.8-10.8)
[2020-08-26] MEDS: NACL 0.9% 1,000 ML IV SCH ×2 (07:15→23:10)
[2020-08-26 07:16] LABS: LACTATE DEHYDROGENASE 638 U/L (81-234); PHOSPHORUS 2.3 mg/dL (2.5-4.9)
[2020-08-26 07:28] LABS: ALBUMIN 1.9 g/dL (3.4-5.0); ANION GAP 12.4 (8-16); CARBON DIOXIDE 26.5 mmol/L (21-32); CREATININE 0.6 mg/dL (0.6-1.3); POTASSIUM 3.9 mmol/L (3.5-5.1); TOTAL BILIRUBIN 0.2 mg/dL (0.0-1.0)
[2020-08-26 08:00] VITALS: BP 149/83
[2020-08-26] MEDS: PANTOPRAZOLE 40 MG TABEC PO SCH (09:35)
[2020-08-26] MEDS: ZINC SULF 220 MG CAP PO SCH (09:35)
[2020-08-26] MEDS: ASCORBIC ACID 500 MG TAB PO SCH (09:35)
[2020-08-26] MEDS: AZITHROMYCIN 250 MG TAB PO SCH (09:36)
[2020-08-26] MEDS: ENOXAPARIN 100 MG/ML SYR SUBQ SCH ×2 (09:38→21:17)
--- NOTE | 2020-08-26 09:56 | NUR ---
ADMINISTERED PRESCRIBED MEDS PER MD ORDER. PATIENT TOLERATED WELL. MEDICATION EDUCATION REINFORCEMENT NEEDED DUE TO LANGUAGE BARRIER. SAFETY MEASURES IN PLACE. WILL CONT TO MONITOR.
[2020-08-26 11:15] LABS: MAGNESIUM 2.4 mg/dL (1.8-2.4)
[2020-08-26 12:00] VITALS: BP 157/85
--- NOTE | 2020-08-26 14:52 | NUR ---
ADMINISTERED PRESCRIBED MEDS PER MD ORDER. PATIENT TOLERATED WELL. MEDICATION EDUCATION REINFORCEMENT NEEDED DUE TO LANGUAGE BARRIER. ASSISTED PATIENT W/ ENSURE, DRANK HALF AND ASSISTED PATIENT W/ REQ WATER. SAFETY MEASURES IN PLACE. WILL CONT TO MONITOR.
[2020-08-26 16:00] VITALS: BP 152/77
--- NOTE | 2020-08-26 16:27 | NUR ---
08/26/20 RD FOLLOW UP COMPLETED PLEASE REFER TO NUTRITION ASSESSMENT UNDER CARE ACTIVITY FOR ESTIMATED NUTRITIONAL NEEDS. 1. CONTINUE PPN PER PHARMACY PROTOCOL. CURRENT PPN IS D10%, AA 4.25% @ 80 ML/HR -PROVIDES 978 KCAL AND 81 GM OF PROTEIN. MEETING 50% OF KCAL NEEDS AND 100% OF PROTEIN NEEDS. 2. CONTINUE ENSURE TID TOLERATED 3. IF RESPIRATORY STATUS WORSENS CONSIDER TUBE FEEDING WITH JEVITY 1.2 @ 70 ML/HR WITH FLUSH OF 110 ML Q4H -THIS WILL PROVIDE 1680 ML OF VOLUME, 1355 ML OF WATER, 2016 KCAL, [address] TO FOLLOW-UP 2-3 DAYS, HIGH RISK CONNIE CROWDER RD
--- NOTE | 2020-08-26 19:20 | NUR ---
RECEIVED BEDSIDE ENDORSEMENT FROM AM SHIFT RN. PT ON PRONE POSITION, AOX4, NO SOB, ON BIPAP, SAFETY MEASURES IN PLACE, PLAN OF CARE DISCUSSED, ISOLATION PRECAUTION OBSERVED, CALL LIGHT WITHIN REACH.
[2020-08-26 20:00] VITALS: BP 150/74
[2020-08-26] MEDS: MULTIVITAMIN IV SCH ×4 (21:16)
[2020-08-26] MEDS: AMINO ACIDS IV SCH ×4 (21:16)
[2020-08-26] MEDS: DEXTROSE IV SCH ×4 (21:16)
[2020-08-26] MEDS: [UNRECOGNIZED DRUG - OTHER] IV SCH ×4 (21:16)
--- NOTE | 2020-08-26 23:35 | NUR ---
PERINEAL CARED RENDERED, REPOSITIONED, PT DRANK WATER, KEPT WARM, ON PRONE POSITION. CALL LIGHT WITHIN REACH.
[2020-08-27] VITALS: BP 143/76
[2020-08-27] MEDS: BLOOD GLUCOSE MONITORING 1 DEV DEV MC SCH ×4 (00:31→18:59)
[2020-08-27] MEDS: ALBUTEROL SULFATE/IPRATROPIU 3 ML SOL IH SCH ×4 (01:15→19:00)
[2020-08-27 04:00] VITALS: BP 153/77
[2020-08-27 06:20] LABS: BASOPHILS # (AUTO) 0.1 K/uL (0.00-0.22); BASOPHILS % (AUTO) 0.4 % (0.0-2.0); EOSINOPHILS # (AUTO) 0.1 K/uL (0-0.4); EOSINOPHILS % (AUTO) 0.4 % (0.0-4.0); HEMATOCRIT 37.5 % (36-48); HEMOGLOBIN 12.4 g/dL (12.0-16.0); LYMPHOCYTES # (AUTO) 0.8 K/uL (2.5-16.5); MEAN CORPUSCULAR HEMOGLOBIN 30 pg (27-31); MEAN CORPUSCULAR HGB CONC 33 g/dL (33-37); MEAN CORPUSCULAR VOLUME 89.6 fL (80-94); MONOCYTES # (AUTO) 0.5 K/uL (0.8-1.0); MONOCYTES % (AUTO) 2.4 % (1.7-9.3); NEUTROPHILS # (AUTO) 17.4 K/uL (1.8-7.7); NEUTROPHILS % (AUTO) 92.8 % (42.2-75.2); PLATELET COUNT (AUTO) 413 K/uL (140-450); RED BLOOD CELL COUNT(AUTO) 4.19 MIL/uL (4.20-5.40); RED CELL DISTRIBUTION WIDTH 13.8 % (11.6-13.7); WHITE BLOOD COUNT (AUTO) 18.7 K/uL (4.8-10.8)
[2020-08-27] MEDS: SODIUM PHOS / POTASSIUM PHOS 1 PKT PDR PO SCH ×3 (06:33→20:41)
--- NOTE | 2020-08-27 07:30 | NUR ---
PT STABLE, NO SOB, ENDORSED TO AM SHIFT RN FOR CONTINUITY OF CARE.
--- NOTE | 2020-08-27 07:35 | NUR ---
REC'D BEDSIDE ENDORSEMENT FROM NIGHTSHIFT NURSE. WILL PROCEED W/ CONTINUITY OF CARE.
[2020-08-27 07:36] LABS: LACTATE DEHYDROGENASE 719 U/L (81-234); MAGNESIUM 1.6 mg/dL (1.8-2.4); PHOSPHORUS 2.4 mg/dL (2.5-4.9)
[2020-08-27 08:00] VITALS: BP 158/83
[2020-08-27] MEDS ORDERED: MAG SULF 2000 MG/WATER PREMIX 50 ML IV ONE (08:35)
--- NOTE | 2020-08-27 08:37 | NUR ---
PATIENT MAG LEVEL 1.6. CONTACTED FOR PRN MAG SUPPLEMENT.
[2020-08-27] MEDS: AZITHROMYCIN 250 MG TAB PO SCH (09:25)
[2020-08-27] MEDS: ZINC SULF 220 MG CAP PO SCH (09:25)
[2020-08-27] MEDS: ASCORBIC ACID 500 MG TAB PO SCH (09:25)
[2020-08-27] MEDS: PANTOPRAZOLE 40 MG TABEC PO SCH (09:25)
[2020-08-27] MEDS: ENOXAPARIN 100 MG/ML SYR SUBQ SCH ×2 (09:30→20:40)
--- NOTE | 2020-08-27 09:46 | NUR ---
ADMINISTERED PRESCRIBED MEDS PER MD ORDER. PATIENT TOLERATED WELL. MEDICATION EDUCATION REINFORCEMENT NEEDED DUE TO LANGUAGE BARRIER. SAFETY MEASURES IN PLACE. WILL CONT TO MONITOR.
[2020-08-27 11:51] LABS: ANION GAP 18.1 (8-16); CREATININE 0.6 mg/dL (0.6-1.3); POTASSIUM 4.1 mmol/L (3.5-5.1)
[2020-08-27 12:00] VITALS: BP 154/74
--- NOTE | 2020-08-27 14:12 | NUR ---
ADMINISTERED PRESCRIBED MEDS PER MD ORDER. PATIENT TOLERATED WELL. SAFETY MEASURES IN PLACE. WILL CONT TO MONITOR.
[2020-08-27] MEDS: NACL 0.9% 1,000 ML IV SCH (15:50)
[2020-08-27 16:00] VITALS: BP 152/86
--- NOTE | 2020-08-27 17:13 | NUR ---
ADMINISTERED PRESCRIBED MEDS PER MD ORDER. PATIENT TOLERATED WELL. SAFETY MEASURES IN PLACE. WILL CONT TO MONITOR
--- NOTE | 2020-08-27 18:59 | NUR ---
ADMINISTERED PRESCRIBED MEDS PER MD ORDER. SAFETY MEASURES IN PLACE. WILL CONT TO MONITOR.
--- NOTE | 2020-08-27 19:25 | NUR ---
RECEIVED BEDSIDE REPORT FROM DAY SHIFT NURSE. PATIENT IS ON PRONE POSITION RESPIRATION EVEN UNLABORED ON BIPAP. SATING 98%. NO DISTRESS NOTED. SKIN IS WARM AND DRY. IV PATENT AND INTACT. PLAN OF CARE WAS DISCUSSED. ALL SAFETY MEASURES IN PLACE.BED IS AT LOW POSITION. CALL LIGHT WITHIN REACH. WILL CONTINUE TO MONITOR.
--- NOTE | 2020-08-27 19:54 | NUR ---
ENDORSED PATIENT TO NIGHTSHIFT NURSE FOR CONTINUITY OF CARE. PATIENT IS STABLE.
[2020-08-27 20:00] VITALS: BP 151/76
--- NOTE | 2020-08-27 20:40 | NUR ---
ALL SCHEDULED MEDS WERE GIVEN PER ORDER. WILL CONTINUE TO MONITOR
[2020-08-27] MEDS: MULTIVITAMIN IV SCH ×4 (21:05)
[2020-08-27] MEDS: AMINO ACIDS IV SCH ×4 (21:05)
[2020-08-27] MEDS: [UNRECOGNIZED DRUG - OTHER] IV SCH ×4 (21:05)
[2020-08-27] MEDS: DEXTROSE IV SCH ×4 (21:05)
--- NOTE | 2020-08-27 22:45 | NUR ---
PATIENT ASKED FOR WATER. WATER PROVIDED. WILL CONTINUE TO MONITOR.
[2020-08-28] VITALS: BP 149/86
[2020-08-28] MEDS: BLOOD GLUCOSE MONITORING 1 DEV DEV MC SCH ×4 (00:28→17:35)
--- NOTE | 2020-08-28 00:30 | NUR ---
INSERT NEW IV TO THE RIGHT FOREARM 18G AND RIGHT HAND 20G. PATIENT TOLERATED IT WELL. WILL CONTINUE TO MONITOR
[2020-08-28] MEDS: ALBUTEROL SULFATE/IPRATROPIU 3 ML SOL IH SCH ×4 (01:00→19:00)
--- NOTE | 2020-08-28 01:29 | NUR ---
MADE ROUNDS. PATIENT SLEEPING RESPIRATION EVEN UNLABORED ON BIPAP. NO DISTRESS NOTED. WILL CONTINUE TO MONITOR.
[2020-08-28 04:00] VITALS: BP 152/88
--- NOTE | 2020-08-28 04:10 | NUR ---
PROVIDED MORNING CARE
[2020-08-28] MEDS: SODIUM PHOS / POTASSIUM PHOS 1 PKT PDR PO SCH ×3 (05:08→20:35)
--- NOTE | 2020-08-28 05:15 | NUR ---
PT LEFT ON SAME SETTINGS RECEIVED ON W/ NO CHANGES MADE 20/08 f20 65% PT WAS MONITORED THROUGHOUT NOC SHIFT
--- NOTE | 2020-08-28 05:54 | NUR ---
FOLLOW UP WITH LAB REGARDING PATIENT CONVALESCENT PLASMA THAT WAS ORDER 08/20. PER LAB THE ORDER IS AND NEED TO REORDER IT. REORDER CONVALESCENT PLASMA. 1 UNIT WAS ALLOWED FOR NOW. WILL ENDORSED TO DAY SHIFT TO FOLLOW UP WITH THE PLASMA.
[2020-08-28] MEDS: ACETAMINOPHEN 325 MG TAB PO PRN (06:17)
--- NOTE | 2020-08-28 06:17 | NUR ---
PATIENT COMPLAINED OF HEADACHE PRN TYLENOL GIVEN PER ORDER. WILL CONTINUE TO MONITOR
--- NOTE | 2020-08-28 07:23 | NUR ---
ENDORSED PATIENT TO DAY SHIFT NURSE FOR CONTINUITY OF CARE.
[2020-08-28] MEDS: NACL 0.9% 1,000 ML IV SCH (08:30)
[2020-08-28] MEDS: ZINC SULF 220 MG CAP PO SCH (09:00)
[2020-08-28] MEDS: ENOXAPARIN 100 MG/ML SYR SUBQ SCH ×2 (09:00→20:35)
[2020-08-28 09:31] LABS: BASOPHILS % (AUTO) 0.3 % (0.0-2.0); EOSINOPHILS # (AUTO) 0.1 K/uL (0-0.4); EOSINOPHILS % (AUTO) 0.7 % (0.0-4.0); HEMATOCRIT 37.5 % (36-48); HEMOGLOBIN 12.4 g/dL (12.0-16.0); LYMPHOCYTES # (AUTO) 0.9 K/uL (2.5-16.5); LYMPHOCYTES % (AUTO) 5.1 % (20.5-51.1); MEAN CORPUSCULAR HEMOGLOBIN 29 pg (27-31); MEAN CORPUSCULAR HGB CONC 33 g/dL (33-37); MONOCYTES # (AUTO) 0.6 K/uL (0.8-1.0); MONOCYTES % (AUTO) 3.2 % (1.7-9.3); NEUTROPHILS # (AUTO) 15.9 K/uL (1.8-7.7); NEUTROPHILS % (AUTO) 90.7 % (42.2-75.2); PLATELET COUNT (AUTO) 414 K/uL (140-450); RED BLOOD CELL COUNT(AUTO) 4.22 MIL/uL (4.20-5.40); RED CELL DISTRIBUTION WIDTH 13.7 % (11.6-13.7); WHITE BLOOD COUNT (AUTO) 17.5 K/uL (4.8-10.8)
[2020-08-28 10:00] VITALS: BP 151/76
[2020-08-28 10:22] LABS: ALBUMIN 1.8 g/dL (3.4-5.0); ANION GAP 14.2 (8-16); CARBON DIOXIDE 24.9 mmol/L (21-32); CREATININE 0.6 mg/dL (0.6-1.3); MAGNESIUM 2.2 mg/dL (1.8-2.4); PHOSPHORUS 2.7 mg/dL (2.5-4.9); POTASSIUM 4.1 mmol/L (3.5-5.1); TOTAL BILIRUBIN 0.2 mg/dL (0.0-1.0)
--- NOTE | 2020-08-28 10:36 | NUR ---
RECEIVED REPORT FROM JAMEY MCBRIDE FOR CONTINUITY OF CARE PT AWAKE A/OX4, ON BIPAP 100% FIO2 SATING 89% . DENIES ANY PAIN. IV SITE RIGHT HAND GAUGE 20 INTACT AND PATENT TPN IS INFUSING. OTHER IV LINE RIGHT HAND G 22 INTACT AND PATIENT IVF INFUSING WELL. PLAN OF CARE DISCUSSED WITH THE PATIENT VITALS STABLE WILL CONTINUE TO MONITOR.
[2020-08-28] MEDS: PANTOPRAZOLE 40 MG TABEC PO SCH (11:35)
[2020-08-28] MEDS: AZITHROMYCIN 250 MG TAB PO SCH (11:36)
[2020-08-28] MEDS: ASCORBIC ACID 500 MG TAB PO SCH (11:36)
[2020-08-28 12:00] VITALS: BP 158/76
--- NOTE | 2020-08-28 12:00 | NUR ---
PRONE POSITION TOLERATED WELL SECOND IV OUT TRIED MAY ATTEMPT UNSUCCESSFUL , NOTIFIED MD ORDERED PICC LINE. VITALS STABLE.
--- NOTE | 2020-08-28 14:00 | NUR ---
STILL ON BIPAP 100% FI02 , PRONE POSITIONED DENIES ANY PATIENT WILL OBSERVE PATIENT.
[2020-08-28 16:00] VITALS: BP 128/77
--- NOTE | 2020-08-28 16:00 | NUR ---
DUE MEDS GIVEN TOLERATED WELL , AWAITING FOR PICC LINE NURSE. PER HOUSE SUP CALL MADE TO PICC LINE NURSE
--- NOTE | 2020-08-28 19:00 | NUR ---
CALLED LAB SPOKE WITH SHAHIDA STAPLES TO PUT TELEPHONE CONSENT FOR PLASMA ORDERED , SUKHDEV CHRISTENSEN NURSE WILL FOLLOW UP. SAFETY MAINTAINED CALL LIGHT IN REACH
--- NOTE | 2020-08-28 19:30 | NUR ---
RECEIVED BEDSIDE REPORT FROM DAY SHIFT NURSE. PATIENT IS ON PRONE POSITION RESPIRATION EVEN UNLABORED ON BIPAP @ 100% FIO2. SATING 95%. NO DISTRESS NOTED. SKIN IS WARM AND DRY. IV PATENT AND INTACT. PLAN OF CARE WAS DISCUSSED. ALL SAFETY MEASURES IN PLACE.BED IS AT LOW POSITION. CALL LIGHT WITHIN REACH. WILL CONTINUE TO MONITOR.
[2020-08-28 20:00] VITALS: BP 144/79
--- NOTE | 2020-08-28 20:35 | NUR ---
ALL SCHEDULED MEDS WERE GIVEN PER ORDER. WILL CONTINUE TO MONITOR
[2020-08-28] MEDS: AMINO ACIDS IV SCH ×4 (20:45)
[2020-08-28] MEDS: MULTIVITAMIN IV SCH ×4 (20:45)
[2020-08-28] MEDS: DEXTROSE IV SCH ×4 (20:45)
[2020-08-28] MEDS: [UNRECOGNIZED DRUG - OTHER] IV SCH ×4 (20:45)
--- NOTE | 2020-08-28 21:52 | NUR ---
MADE ROUNDS. PATIENT SLEEPING RESPIRATION EVEN UNLABORED ON BIPAP. NO DISTRESS NOTED, WILL CONTINUE TO MONITOR.
--- NOTE | 2020-08-28 23:30 | NUR ---
PRESENT AND ON STAND BY DURING PROCEDURE SHOULD RT SERVICES BE NEEDED PT NEEDED TO BE SUPINE
--- NOTE | 2020-08-28 23:30 | NUR ---
PICC LINE NURSE AT BEDSIDE.
--- NOTE | 2020-08-28 23:45 | NUR ---
PER PICC LINE NURSE NOE, ITS OKAY TO USE PICC LINE
--- NOTE | 2020-08-28 23:50 | NUR ---
RIGHT UPPER ARM PICC LINE PATENT AND INTACT.
[2020-08-29] VITALS: BP 152/68
[2020-08-29] MEDS: BLOOD GLUCOSE MONITORING 1 DEV DEV MC SCH ×5 (00:28→23:18)
[2020-08-29] MEDS: ALBUTEROL SULFATE/IPRATROPIU 3 ML SOL IH SCH ×3 (01:00→13:02)
[2020-08-29] MEDS: NACL 0.9% 1,000 ML IV SCH ×2 (01:10→17:58)
--- NOTE | 2020-08-29 02:10 | NUR ---
MADE ROUNDS. PATIENT SLEEPING RESPIRATION EVEN UNLABORED ON BIPAP. NO DISTRESS NOTED, WILL CONTINUE TO MONITOR
[2020-08-29 04:00] VITALS: BP 149/84
--- NOTE | 2020-08-29 04:08 | NUR ---
PROVIDED MORNING CARE.
--- NOTE | 2020-08-29 05:29 | NUR ---
CALLED LAB TO FOLLOW UP PATIENT PLASMA PER LAB SHE WILL CALL ME BACK LATER
[2020-08-29] MEDS: SODIUM PHOS / POTASSIUM PHOS 1 PKT PDR PO SCH ×3 (05:31→20:02)
--- NOTE | 2020-08-29 07:35 | NUR ---
ENDORSED PATIENT TO DAY SHIFT NURSE FOR CONTINUITY OF CARE.
--- NOTE | 2020-08-29 07:36 | NUR ---
RECEIVED REPORT FROM SENIOR INTERNAL AUDITOR NURSE. PATIENT IN STABLE CONDITION.
[2020-08-29 08:00] VITALS: BP 162/75
[2020-08-29] MEDS: ENOXAPARIN 100 MG/ML SYR SUBQ SCH ×2 (09:00→20:03)
[2020-08-29 09:30] LABS: BASOPHILS % (AUTO) 0.2 % (0.0-2.0); EOSINOPHILS % (AUTO) 0.2 % (0.0-4.0); HEMATOCRIT 37.7 % (36-48); HEMOGLOBIN 12.3 g/dL (12.0-16.0); LYMPHOCYTES # (AUTO) 0.8 K/uL (2.5-16.5); LYMPHOCYTES % (AUTO) 4.6 % (20.5-51.1); MEAN CORPUSCULAR HEMOGLOBIN 29 pg (27-31); MEAN CORPUSCULAR HGB CONC 33 g/dL (33-37); MEAN CORPUSCULAR VOLUME 89.7 fL (80-94); MONOCYTES # (AUTO) 0.6 K/uL (0.8-1.0); MONOCYTES % (AUTO) 3.4 % (1.7-9.3); NEUTROPHILS # (AUTO) 15.5 K/uL (1.8-7.7); NEUTROPHILS % (AUTO) 91.6 % (42.2-75.2); PLATELET COUNT (AUTO) 394 K/uL (140-450); RED CELL DISTRIBUTION WIDTH 13.6 % (11.6-13.7); WHITE BLOOD COUNT (AUTO) 16.9 K/uL (4.8-10.8)
[2020-08-29] MEDS: ASCORBIC ACID 500 MG TAB PO SCH (10:11)
[2020-08-29] MEDS: AZITHROMYCIN 250 MG TAB PO SCH (10:11)
[2020-08-29] MEDS: ZINC SULF 220 MG CAP PO SCH (10:12)
[2020-08-29] MEDS: PANTOPRAZOLE 40 MG TABEC PO SCH (10:12)
[2020-08-29 10:14] LABS: ALBUMIN 1.7 g/dL (3.4-5.0); ANION GAP 15.5 (8-16); CARBON DIOXIDE 22.9 mmol/L (21-32); CREATININE 0.5 mg/dL (0.6-1.3); MAGNESIUM 2.3 mg/dL (1.8-2.4); PHOSPHORUS 3.5 mg/dL (2.5-4.9); POTASSIUM 4.4 mmol/L (3.5-5.1); TOTAL BILIRUBIN 0.2 mg/dL (0.0-1.0)
--- NOTE | 2020-08-29 10:14 | NUR ---
SCHEDULED MEDICATIONS DUE GIVEN. WILL CONTINUE TO MONITOR.
[2020-08-29 12:00] VITALS: BP 152/78
[2020-08-29] MEDS: DEXAMETHASONE 4 MG TAB PO SCH (13:38)
--- NOTE | 2020-08-29 13:38 | NUR ---
SCHEDULED MEDICATIONS DUE GIVEN. WILL CONTINUE TO MONITOR.
[2020-08-29 16:00] VITALS: BP 150/72
--- NOTE | 2020-08-29 17:22 | NUR ---
08/29/20 RD FOLLOW UP COMPLETED. PLEASE REFER TO NUTRITION ASSESSMENT UNDER CARE ACTIVITY FOR ESTIMATED NUTRITIONAL NEEDS. 1.CONTINUE PPN PER PHARMACY PROTOCOL. CURRENT PPN PROVIDES 1969 KCAL AND 122 GM OF PROTEIN. MEETING 100% OF ENERGY AND PROTEIN NEEDS. 2. CONTINUE ENSURE TID TOLERATED 3. IF RESPIRATORY STATUS WORSENS CONSIDER TUBE FEEDING WITH JEVITY 1.2 @ 70 ML/HR WITH FLUSH OF 110 ML Q4HR. THIS WILL PROVIDE 1680 ML OF VOLUME, 1355 ML OF WATER, 2016 KCAL, [address] OF [address] RD TO FOLLOW-UP 2-3 DAYS, HIGH RISK RD TO FOLLOW-UP IN 2-3 DAYS PATIENT IS HIGH RISK. DAVID SMALLWOOD, RD
--- NOTE | 2020-08-29 19:00 | NUR ---
RECEIVED BEDSIDE REPORT FROM DAY SHIFT NURSE. PATIENT IS ON PRONE POSITION RESPIRATION EVEN UNLABORED ON BIPAP @ 100% FIO2. SATING 92%. NO DISTRESS NOTED. SKIN IS WARM AND DRY. RIGHT UPPER ARM PICC LINE DOUBLE LUMEN NOTED PATENT AND INTACT. ZHU CATHETER NOTED DRAINING YELLOW URINE. PLAN OF CARE WAS DISCUSSED. ALL SAFETY MEASURES IN PLACE.BED IS AT LOW POSITION. CALL LIGHT WITHIN REACH. WILL CONTINUE TO MONITOR.
--- NOTE | 2020-08-29 19:36 | NUR ---
GAVE REPORT TO NIGHT NURSE FOR CONTINUITY OF CARE. PATIENT IN STABLE CONDITION.
--- NOTE | 2020-08-29 19:36 | NUR ---
GAVE REPORT TO NIGHT NURSE FOR CONTINUITY OF CARE. PATIENT IN STABLE CONDITION. Addendum: 08/29/20 at 2 by Lanre Otto RN WRONG PATIENT
[2020-08-29] MEDS: DEXTROSE IV SCH ×8 (19:48→20:00)
[2020-08-29] MEDS: MULTIVITAMIN IV SCH ×8 (19:48→20:00)
[2020-08-29] MEDS: [UNRECOGNIZED DRUG - OTHER] IV SCH ×8 (19:48→20:00)
[2020-08-29] MEDS: AMINO ACIDS IV SCH ×8 (19:48→20:00)
[2020-08-29 20:00] VITALS: BP 155/77
--- NOTE | 2020-08-29 20:00 | NUR ---
INITIAL ASSESSMENT DONE. VITALS WERE TAKEN. TPN ADMINISTERED PER ORDER. WILL CONTINUE TO MONITOR
--- NOTE | 2020-08-29 20:10 | NUR ---
ALL SCHEDULED MEDS WERE GIVEN PER ORDER. WILL CONTINUE TO MONITOR.
[2020-08-30] VITALS (7 sets, daily range): BP systolic 140–160; BP diastolic 74–90
--- NOTE | 2020-08-30 00:10 | NUR ---
VITALS WERE TAKEN. PATIENT IN STABLE CONDITION. NO DISTRESS NOTED. WILL CONTINUE TO MONITOR.
--- NOTE | 2020-08-30 00:45 | NUR ---
START PLASMA TRANSFUSION. VITALS WERE TAKEN.
--- NOTE | 2020-08-30 01:45 | NUR ---
PLASMA TRANSFUSION DONE. NO TRANSFUSION REACTION NOTED.
--- NOTE | 2020-08-30 04:28 | NUR ---
VITALS WERE TAKEN. PATIENT IN STABLE CONDITION. NO DISTRESS NOTED.
[2020-08-30] MEDS: BLOOD GLUCOSE MONITORING 1 DEV DEV MC SCH ×4 (05:16→23:46)
[2020-08-30] MEDS: SODIUM PHOS / POTASSIUM PHOS 1 PKT PDR PO SCH ×3 (05:16→20:53)
--- NOTE | 2020-08-30 05:21 | NUR ---
PROVIDED MORNING CARE.
[2020-08-30 06:47] LABS: HEMATOCRIT 36.1 % (36-48); HEMOGLOBIN 11.9 g/dL (12.0-16.0); MEAN CORPUSCULAR HEMOGLOBIN 30 pg (27-31); MEAN CORPUSCULAR HGB CONC 33 g/dL (33-37); MEAN CORPUSCULAR VOLUME 89.6 fL (80-94); PLATELET COUNT (AUTO) 435 K/uL (140-450); RED BLOOD CELL COUNT(AUTO) 4.02 MIL/uL (4.20-5.40); RED CELL DISTRIBUTION WIDTH 13.7 % (11.6-13.7); WHITE BLOOD COUNT (AUTO) 16.9 K/uL (4.8-10.8)
--- NOTE | 2020-08-30 07:25 | NUR ---
ENDORSED PATIENT TO DAY SHIFT NURSE FOR CONTINUITY OF CARE
[2020-08-30] MEDS: ALBUTEROL SULFATE/IPRATROPIU 3 ML SOL IH SCH ×3 (08:08→19:50)
[2020-08-30] MEDS: ENOXAPARIN 100 MG/ML SYR SUBQ SCH ×2 (09:00→20:52)
[2020-08-30] MEDS: DEXAMETHASONE 4 MG TAB PO SCH (09:00)
[2020-08-30 09:27] LABS: ALBUMIN 1.9 g/dL (3.4-5.0); ANION GAP 16.8 (8-16); CARBON DIOXIDE 22.3 mmol/L (21-32); CREATININE 0.6 mg/dL (0.6-1.3); MAGNESIUM 2.2 mg/dL (1.8-2.4); PHOSPHORUS 3.6 mg/dL (2.5-4.9); POTASSIUM 4.1 mmol/L (3.5-5.1); TOTAL BILIRUBIN 0.3 mg/dL (0.0-1.0)
[2020-08-30] MEDS: NACL 0.9% 1,000 ML IV SCH (10:30)
[2020-08-30] MEDS: ASCORBIC ACID 500 MG TAB PO SCH (11:03)
[2020-08-30] MEDS: ZINC SULF 220 MG CAP PO SCH (11:05)
[2020-08-30] MEDS: PANTOPRAZOLE 40 MG TABEC PO SCH (11:05)
[2020-08-30 19:58] LABS: EOSINOPHILS % (MANUAL) 1 % (0-4); LYMPHOCYTES % (MANUAL) 5 % (20-46); MONOCYTES % (MANUAL) 4 % (5-12)
[2020-08-30] MEDS: AMINO ACIDS IV SCH ×4 (20:54)
[2020-08-30] MEDS: MULTIVITAMIN IV SCH ×4 (20:54)
[2020-08-30] MEDS: [UNRECOGNIZED DRUG - OTHER] IV SCH ×4 (20:54)
[2020-08-30] MEDS: DEXTROSE IV SCH ×4 (20:54)
[2020-08-31] VITALS (21 sets, daily range): BP systolic 92–209; BP diastolic 38–92
[2020-08-31] MEDS: ALBUTEROL SULFATE/IPRATROPIU 3 ML SOL IH SCH ×4 (01:00→19:00)
[2020-08-31] MEDS: NACL 0.9% 1,000 ML IV SCH ×2 (03:10→19:50)
[2020-08-31] MEDS: SODIUM PHOS / POTASSIUM PHOS 1 PKT PDR PO SCH ×3 (04:10→21:00)
[2020-08-31] MEDS: BLOOD GLUCOSE MONITORING 1 DEV DEV MC SCH ×3 (05:00→17:44)
[2020-08-31 07:07] LABS: ALBUMIN 2.1 g/dL (3.4-5.0); ANION GAP 13.6 (8-16); CARBON DIOXIDE 23.5 mmol/L (21-32); CREATININE 0.6 mg/dL (0.6-1.3); MAGNESIUM 2.1 mg/dL (1.8-2.4); PHOSPHORUS 3.4 mg/dL (2.5-4.9); POTASSIUM 4.1 mmol/L (3.5-5.1); TOTAL BILIRUBIN 0.3 mg/dL (0.0-1.0)
[2020-08-31] MEDS: ASCORBIC ACID 500 MG TAB PO SCH (08:22)
[2020-08-31] MEDS: PANTOPRAZOLE 40 MG TABEC PO SCH (08:22)
[2020-08-31] MEDS: ZINC SULF 220 MG CAP PO SCH (08:22)
[2020-08-31] MEDS: ENOXAPARIN 100 MG/ML SYR SUBQ SCH ×2 (08:24→21:51)
--- NOTE | 2020-08-31 08:26 | NUR ---
SCHEDULED MEDICATIONS DUE GIVEN. WILL CONTINUE TO MONITOR.
[2020-08-31] MEDS: ACETAMINOPHEN 325 MG TAB PO PRN (11:32)
--- NOTE | 2020-08-31 11:32 | NUR ---
SCHEDULED MEDICATIONS DUE GIVEN. WILL CONTINUE TO MONITOR.
[2020-08-31] MEDS ORDERED: PROPOFOL 1000 MG/100 ML PREMIX 100 ML IV ONE ×2 (13:13→15:29)
--- NOTE | 2020-08-31 13:19 | NUR ---
DR. BETTS AT BEDSIDE, WANTS TO INTUBATE PATIENT PATIENT. PATIENT AGREED TO INTUBATION PATIENT IS GETTING TIRED ON BIPAP. WITNESSED VERBAL CONSENT GIVEN FROM PATIENT WITH DR. BETTS. NOTIFIED RT AND EXTRACTOR MACHINE OPERATOR.
--- NOTE | 2020-08-31 13:31 | NUR ---
DR BETTS AT BEDSIDE WITH RT REED RUBI RSI WITH 20MG ETOMIDATE AND 50MG LYNN, SEDATION WITH PROPOFOL ORDERED.
[2020-08-31] MEDS: PROPOFOL 1000 MG/100 ML PREMIX 100 ML IV PRN (13:45)
[2020-08-31] MEDS ORDERED: fentaNYL citrate 1 MG in NACL 0.9% 80 ML IV PRN (14:10)
--- NOTE | 2020-08-31 14:40 | NUR ---
PT PRONED WITH RT RUBI AT BEDSIDE FOR AIRWAY MANAGEMENT, NO ADVERSE EVENTS. PT NOW ON PROPOFOL AND FENTANYL FOR SEDATION.
[2020-08-31] MEDS: fentaNYL citrate - 50mL vial 2.5 MG in NACL 0.9% 200 ML IV PRN (14:50)
--- NOTE | 2020-08-31 16:30 | NUR ---
ABG RESULT REPORTED TO DR BETTS BY RT RUBI, DR BETTS NOTIFIED OF DECREASING BP WITH SEDATION MAX'D, ORDER FOR LEVOPHED AND VERSED RECIEVED
[2020-08-31] MEDS ORDERED: NOREPINEPHRINE 4 MG/4 ML VIAL IV ONE (20:17)
[2020-08-31] MEDS ORDERED: MIDAZOLAM MDV 50 MG/10 ML VIAL IV ONE (20:21)
[2020-08-31] MEDS: MIDAZOLAM MDV 100 MG in NACL 0.9% 80 ML IV PRN (20:51)
[2020-08-31] MEDS: [UNRECOGNIZED DRUG - OTHER] IV SCH ×4 (21:48)
[2020-08-31] MEDS: MULTIVITAMIN IV SCH ×4 (21:48)
[2020-08-31] MEDS: DEXTROSE IV SCH ×4 (21:48)
[2020-08-31] MEDS: AMINO ACIDS IV SCH ×4 (21:48)
--- NOTE | 2020-08-31 22:23 | NUR ---
PT RECEIVED ON ACVC 300 +18 f 20 100% 7.5 ETT SECURED @ 23CM AMBU AT BED SIDE VENT PLUGGED INTO RED OUTLET
--- NOTE | 2020-08-31 23:30 | NUR ---
CALLED TO BEDSIDE BY RN. SPO2 WAS LOW 70s, PT WAS REMOVED FROM VENT AND BAGGED W/ AMBU MULTIPLE TIMES. PT SPO2 SLOWLY CLIMBED TO 80s AND A COUPLE TIMES 90% WAS OBTAINABLE. ALTHOUGH 90 WAS OBTAINABLE BY AMBU IT WAS NOT MAINTAINABLE. I ATTEMPTED ADJUSTING SETTINGS AND SPO2 WAS NOT MAINTAINING >80%. I CALLED LACEY SALDIVAR FOR ASSISTANCE HE ALSO ATTEMPTED TO ADJUST VENT SETTINGS TO MAINTAIN SPO2. WE WILL CONTACT DR CH TO INFORM HIM
--- NOTE | 2020-08-31 23:30 | NUR ---
observed pt starting to desaturate to low 70% and dropping to 50%. RT contacted for interventions.
[2020-09-01] VITALS (42 sets, daily range): BP systolic 85–123; BP diastolic 25–76
--- NOTE | 2020-09-01 00:15 | NUR ---
after many attempts of different settings on ventilation, pt unable to increase saturations. pt placed on BVM and saturations increased to as high as 92% but would desat once placed back on vent.
--- NOTE | 2020-09-01 00:30 | NUR ---
pt placed in supine position with accompany of RT and another RN. Saturations still decreasing.
[2020-09-01] MEDS: ALBUTEROL SULFATE/IPRATROPIU 3 ML SOL IH SCH ×2 (01:01→19:12)
--- NOTE | 2020-09-01 01:35 | NUR ---
SPOKE TO DR. CH AND INFORMED HER THAT PT WAS DESATURATING IN 50s WHILE IN PRONE POSITION. PT ON PEEP 18 cmH20 AND 100%. PT WAS TURNED INTO SUPINE POSITION AND VENT SETTINGS SWITCHED TO PC 14 cmH20 AND PEEP 18 cmH20. AND PT STILL DESATURATING IN 50s. PER DOCTOR JING DECREASE PEEP TO 16 cmH20. ORDER VERIFIED AND CARRIED OUT. RN NOTIFIED. WILL CONTINUE TO MONITOR PT.
[2020-09-01] MEDS: NOREPINEPHRINE 16 MG in DEXTROSE 5% 250 ML IV PRN ×2 (03:09→14:30)
[2020-09-01] MEDS: PROPOFOL 1000 MG/100 ML PREMIX 100 ML IV PRN ×5 (03:09→20:34)
[2020-09-01] MEDS: SODIUM PHOS / POTASSIUM PHOS 1 PKT PDR PO SCH ×3 (05:25→21:00)
[2020-09-01] MEDS: BLOOD GLUCOSE MONITORING 1 DEV DEV MC SCH ×4 (05:35→17:07)
[2020-09-01] MEDS: fentaNYL citrate - 50mL vial 2.5 MG in NACL 0.9% 200 ML IV PRN (06:06)
--- NOTE | 2020-09-01 07:23 | NUR ---
RECEIVED REPORT FORM CARD SORTER NURSE FOR CONTINUITY OF CARE. PT IN BED, SUPINE POSITION. RASS-3, FLACC 0, RESPIRATIONS ARE SHALLOW AND LABORED, O2SAT 80-81%. ETT TO VENT: AC/pC FIO2 100% R 20 PEEP 16. ABD SOFT, NON-DISTENDED, NON-TENDER. WITH VERONICA PICC, RUNNING PROPOFOL 39MCG, fentanyl 2mcg, VERSED 4MG, LEVO 10MCG, tpn 60CC/HR. ZHU INTACT AND PATENT. NGT INTACT. SAFETY PRECAUTIONS IN PLACE. WILL CONT TO MONITOR.
[2020-09-01] MEDS: ENOXAPARIN 100 MG/ML SYR SUBQ SCH ×2 (09:00→21:33)
[2020-09-01] MEDS: ASCORBIC ACID 500 MG TAB PO SCH (09:00)
[2020-09-01] MEDS: ZINC SULF 220 MG CAP PO SCH (09:00)
[2020-09-01] MEDS: PANTOPRAZOLE 40 MG TABEC PO SCH (09:00)
--- NOTE | 2020-09-01 09:30 | NUR ---
NGT INSERTED ON RIGHT NARES. AWAITING CXR FOR CONFIRMATION
[2020-09-01] MEDS ORDERED: NACL 0.9% 500 ML IV ONE (10:30)
[2020-09-01] MEDS ORDERED: PHENYLEPHRINE 40 MG in NACL 0.9% 250 ML IV PRN (10:30)
--- NOTE | 2020-09-01 10:30 | NUR ---
NOTIFIED DR BETTS OF ELEVATED HR 140s. ORDERED NS 500ML BOLUS AND VISH-SYNEPHRINE DRIP
--- NOTE | 2020-09-01 11:36 | NUR ---
09/01/20 RD FOLLOW UP COMPLETED. PLEASE REFER TO NUTRITION ASSESSMENT UNDER CARE ACTIVITY FOR ESTIMATED NUTRITIONAL NEEDS. FOR TUBE FEEDING, CONSIDER: GLUCERNA 1.2 @ 10 ML/HR WITH A GOAL RATE OF 70 ML/HR WITH FREE WATER FLUSH OF 110 ML Q4HR. AT GOAL RATE, THIS WILL PROVIDE 1680 ML OF VOLUME, 1352 ML OF WATER, 2016 KCAL, 101 GM OF PROTEIN THIS WILL MEET 100% ESTIMATED ENERGY AND PROTEIN NEEDS/DAY RD TO FOLLOW-UP 2-3 DAYS, HIGH RISK DAVID SMALLWOOD RD
[2020-09-01 12:24] LABS: ALBUMIN 1.4 g/dL (3.4-5.0); ANION GAP 15.5 (8-16); CARBON DIOXIDE 20.9 mmol/L (21-32); CREATININE 1.5 mg/dL (0.6-1.3); POTASSIUM 5.4 mmol/L (3.5-5.1); TOTAL BILIRUBIN 0.3 mg/dL (0.0-1.0)
[2020-09-01] MEDS: NACL 0.9% 1,000 ML IV SCH (12:30)
--- NOTE | 2020-09-01 13:05 | NUR ---
PLACED ON PRONE POSITION, PT TOLERATED POSITION WELL
[2020-09-01] MEDS: MIDAZOLAM MDV 100 MG in NACL 0.9% 80 ML IV PRN (13:54)
--- NOTE | 2020-09-01 16:30 | NUR ---
BLOOD SUGAR 114. NO COVERAGE
--- NOTE | 2020-09-01 19:20 | NUR ---
NO RECENT LABS DRAWN, UNABLE TO ASSESS PATIENTS RECENT CBC LEVELS. CALLED LAB AND ORDERED STAT CBC.
--- NOTE | 2020-09-01 19:21 | NUR ---
RECEIVED PATIENT FROM AM SHIFT. PATIENT WAS SEEN AND ASSESSED. PATIENT IS INTUBATED WITH ETT SIZE 7.5 AND SECURED WITH ANCHOR-FAST AT 23cm. PATIENT IS ON VENT SETTINGS: PC 14, RR 20, PEEP 16, FiO2 100% WITH SPO2 OF 99%. VENT IS PLUGGED IN RED OUTLET. AMBU BAG AT BEDSIDE. VENT ALARMS SET AND AUDIBLE TO ENVIRONMENT. SUCTIONED SMALL AMOUNT OF YELLOW THICK SECRETIONS FROM ETT. AIRWAY IS PATENT. AUSCULTATION REVEALS BILATERAL COARSE BREATH SOUNDS. PATIENT IS IN NO APPARENT RESPIRATORY DISTRESS AT THIS TIME. WILL CONTINUE TO MONITOR PATIENT.
--- NOTE | 2020-09-01 20:02 | NUR ---
RECEIVED REPORT, PT ETT TO VENT, AC PC FI02 100%, RATE 20, PEEP 16. VERONICA PICC IN PLACE, INFUSING LEVOPHED 4 MCG/MIN, NEOSYNEPHRINE 50 MCG/MIN, FENTANYL 2 MCG/KG/HR, VERSED 10 MG/HR, AND PROPOFOL 40 MCG/KG/MIN. NS @ 60ML/HR, AND TPN 60ML/HR. DRY WEIGHT 94.8 KG, RASS -3. PERRL, EDEMA NOTED AT EYES. PT CURRENTLY IN PRONE POSITION. NGT TO RT NARE, CLAMPED TO PATIENT. ZHU CATHETER IN PLACE, YELLOW HAZY WITH SEDIMENT URINE NOTED. SKIN WARM AND DRY, INTACT. PT CONNECTED TO CONTINUOUS CARDIAC MONITORING. DROPLET PRECAUTIONS IN PLACE. FLACC 0. REVERSE [place], SIDE RAILS UP, BED LOCKED. WILL CONTINUE TO MONITOR.
[2020-09-01 20:59] LABS: HEMATOCRIT 34.3 % (36-48); HEMOGLOBIN 10.8 g/dL (12.0-16.0); MEAN CORPUSCULAR HEMOGLOBIN 30 pg (27-31); MEAN CORPUSCULAR HGB CONC 32 g/dL (33-37); MEAN CORPUSCULAR VOLUME 93.9 fL (80-94); PLATELET COUNT (AUTO) 405 K/uL (140-450); RED BLOOD CELL COUNT(AUTO) 3.65 MIL/uL (4.20-5.40); RED CELL DISTRIBUTION WIDTH 13.8 % (11.6-13.7)
[2020-09-01 21:06] LABS: WHITE BLOOD COUNT (AUTO) 34.8 K/uL (4.8-10.8)
[2020-09-01 21:16] LABS: BLASTS, MANUAL % 2 % (0-0); LYMPHOCYTES % (MANUAL) 9 % (20-46); MONOCYTES % (MANUAL) 6 % (5-12); PROMYELOCYTES % 1 % (0-0)
[2020-09-01] MEDS: ACETAMINOPHEN 325 MG TAB PO PRN (21:33)
--- NOTE | 2020-09-01 21:45 | NUR ---
LAB RESULTS IN, CONFIRMED PLATELET COUNT, SCHEDULED LOVENOX GIVEN. ADMINISTERED TYLENOL FOR FEVER AND ADDED ICE PACKS. TPN DISCONTINUED AND STARTED ON TUBE FEEDING AT 10ML/HR, WILL MONITOR. ORAL CARE PROVIDED AND REMOVED BLANKETS. REVERSE [place], SIDE RAILS UP. WILL CONTINUE TO MONITOR.
[2020-09-02] VITALS (9 sets, daily range): BP systolic 97–134; BP diastolic 28–44
[2020-09-02] MEDS: ALBUTEROL SULFATE/IPRATROPIU 3 ML SOL IH SCH ×2 (00:13→07:08)
--- NOTE | 2020-09-02 00:30 | NUR ---
BLOOD SUGAR 106, NO COVERAGE NEEDED. PROVIDED ORAL CARE AND SUCTIONED NOSE, MODERATE AMOUNT OF SECRETIONS. PT BP STABLE WITH ONLY 1 PRESSOR. HR IMPROVING. TEMPERATURE WITHIN RANGE, 99.6, REMOVED ICE PACKS. FLACC 0. WILL CONTINUE TO MONITOR.
[2020-09-02] MEDS: BLOOD GLUCOSE MONITORING 1 DEV DEV MC SCH (00:50)
[2020-09-02] MEDS: PROPOFOL 1000 MG/100 ML PREMIX 100 ML IV PRN (01:01)
[2020-09-02] MEDS: MIDAZOLAM MDV 100 MG in NACL 0.9% 80 ML IV PRN (01:02)
--- NOTE | 2020-09-02 02:11 | NUR ---
NO SIGNS OF DISTRESS, PT FLACC 0, RASS -3. SUCTIONED MOUTH AND NOSE, PRESSURE AREAS OFFLOADED WITH PILLOWS. REVERSE [place], SP02 WITHIN RANGE, HR NOW SINUS RHYTHM.
--- NOTE | 2020-09-02 04:15 | NUR ---
SKIN WARM AND DRY, AFEBRILE. ALL VITALS WITHIN RANGE, DBP LOW, SBP ABOVE 100, NEOSYNEPHRINE INFUSING AT 50 MCG/MIN. SAFETY MEASURES IN PLACE. WILL CONTINUE TO MONITOR.
[2020-09-02] MEDS ORDERED: PHENYLEPHRINE 10 MG/ML VIAL ONE (04:56)
--- NOTE | 2020-09-02 05:45 | NUR ---
PT SUCCESSFULLY TURNED TO SUPINE POSITION. NO INCIDENTS OCCURRED, ETT INTACT. SPONGE BATH, ZHU CARE, AND ORAL CARE PROVIDED. PT SLOWLY DESATURATING TO LOW 80's. RN AND RT AT BEDSIDE.
--- NOTE | 2020-09-02 06:15 | NUR ---
PT DESATTING TO LOW 50-60's, RN AT BEDSIDE TO CHANGE PULSE OXIMETER AND REPOSITION PT. PULSE AND OXYGEN NOT READING ON MONITOR. TAIL END RIDER ALERTING NURSE RHYTHM SHOWS ASYSTOLE, PALPATED FOR PULSES AND ONLY FELT OCCASIONAL BEATS/BRENDON, CODE BLUE CALLED, SEE CODE BLUE SHEET.
--- NOTE | 2020-09-02 06:20 | NUR ---
PT's SON UPDATED ON PATIENT CONDITION.
[2020-09-02 06:59] LABS: ALBUMIN 1.3 g/dL (3.4-5.0); ANION GAP 17.9 (8-16); CARBON DIOXIDE 20.7 mmol/L (21-32); CREATININE 3.5 mg/dL (0.6-1.3); MAGNESIUM 2.4 mg/dL (1.8-2.4); TOTAL BILIRUBIN 0.5 mg/dL (0.0-1.0)
--- NOTE | 2020-09-02 07:15 | NUR ---
PT BRADYCARDIC ON MONITOR WITH VERY THREADY PULSES PALPATED. RN AND RT AT BEDSIDE TO ASSESS, PULSES NOT FELT, MONITOR SHOWS FLATLINE, CODE BLUE CALLED AGAIN, SEE CODE BLUE SHEET.
--- NOTE | 2020-09-02 07:40 | NUR ---
PT's SON UPDATED ON CONDITION, AWARE NURSE WILL FOLLOWUP WITH SOFTWARE PUBLISHER IF ALLOWED TO SEE FAMILY. PENDING MORTUARY DECISION.
[2020-09-02 08:45] LABS: POTASSIUM 8.6 mmol/L (3.5-5.1)
[2020-09-02 08:46] LABS: PHOSPHORUS 15.2 mg/dL (2.5-4.9)
[2020-09-02] MEDS ORDERED: PANTOPRAZOLE 40 MG INJ VIAL IVP SCH (09:00)
== END 2020-09-02 11:30 | DRG 720 ==
LOC: MED 11:05 → MTU 16:10 → MMU 08-21 02:05
PROVIDERS: ADMIT Family Medicine; ATTEND Family Medicine
PROC: 5A09557 Assistance with Respiratory Ventilation, Greater than 96 Consecutive Hours, Continuous Positive Airway Pressure (ICD-10-PCS; 2020-08-20)
PROC: XW033E5 Introduction of Remdesivir Anti-infective into Peripheral Vein, Percutaneous Approach, New Technology Group 5 (ICD-10-PCS; principal; 2020-08-25)
PROC: XW13325 Transfusion of Convalescent Plasma (Nonautologous) into Peripheral Vein, Percutaneous Approach, New Technology Group 5 (ICD-10-PCS; 2020-08-30)
PROC: 0BH17EZ Insertion of Endotracheal Airway into Trachea, Via Natural or Artificial Opening (ICD-10-PCS; 2020-08-31)
PROC: 5A1935Z Respiratory Ventilation, Less than 24 Consecutive Hours (ICD-10-PCS; 2020-08-31)
PROC: 5A12012 Performance of Cardiac Output, Single, Manual (ICD-10-PCS; 2020-09-02)
DX: A41.9 Sepsis, unspecified organism (principal); U07.1 COVID-19; I46.9 Cardiac arrest, cause unspecified; E83.39 Other disorders of phosphorus metabolism; E83.42 Hypomagnesemia; J12.89 Other viral pneumonia; Z68.41 Body mass index [BMI] 40.0-44.9, adult; D68.59 Other primary thrombophilia; E43 Unspecified severe protein-calorie malnutrition; E87.0 Hyperosmolality and hypernatremia; R65.21 Severe sepsis with septic shock; J80 Acute respiratory distress syndrome; E78.5 Hyperlipidemia, unspecified; E66.9 Obesity, unspecified; I51.7 Cardiomegaly; F41.9 Anxiety disorder, unspecified
CPT/HCPCS: 36415; 71045; 80048; 80053; 82150; 82550; 82553; 82948; 83036; 83605; 83615; 83690; 83735; 83880; 84100; 84436; 84439; 84443; 84479; 84484; 85025; 85379; 85610; 85651; 85730; 86140; 86900; 86901; 87040; 87081; 92950; 94003; 94640; 94660; 96372; 99285; A9153; J0456; J0696; J1100; J1644; J1650; J2060; J2250; J2370; J2704; J3010; J3475; J3490; J7030; J7060; P9017; U0003